=== PATIENT | male | born 1940 | race Caucasian/White ===

== ENCOUNTER 2018-08-22 14:19 | Inpatient (IN) | payer OTHER ==
--- NOTE | 2018-08-22 14:32 | EDPHY ---
H & P Stated Complaint: Abd Pain Time Seen by Provider: 08/22/18 14:30 - Personal History Current Tetanus Diphtheria and Acellular Pertussis (TDAP): Yes - Medical/Surgical History Hx Asthma: Yes Hx Chronic Respiratory Disease: No Hx Diabetes: No Hx Cardiac Disease: No Hx Renal Disease: No Hx Cirrhosis: No Hx Alcoholism: No Hx HIV/AIDS: No Hx Splenectomy or Spleen Trauma: No Other PMH: [place], Kidney Stone - Social History Smoking Status: Never smoked Constitutional: Initial Vital Signs Temperature (C) 36.5 C 08/22/18 14:23 Heart Rate 92 08/22/18 14:23 Respiratory Rate 16 08/22/18 14:23 Blood Pressure 123/98 H 08/22/18 14:23 O2 Sat (%) 106 H 08/22/18 14:23 O2 Delivery Mode Nasal Cannula O2 (L/minute) 1.5 Allergies/Adverse Reactions: ampicillin Allergy (Verified 08/22/18 14:22) cefaclor [From Ceclor] Allergy (Verified 08/22/18 14:22) Home Medications: Medication Instructions Recorded Clau Allergy 08/22/18 Atorvastatin Calcium 08/22/18 buPROPion 08/22/18 Medical Decision Making - Diagnostics Imaging Results: Imaging Impressions Abdomen CT 08/22/18 14:35 Impression: 1. Proximal small bowel obstruction, with an abrupt transition point in the left abdomen, with decompressed small bowel and colon distally. 2. Small volume of ascites. 3. Trace pleural effusions. 4. Additional findings, as above. Findings discussed with Kiko Blankenship M.D., on August 22, 2018 at 1633. Imaging: Discussed imaging studies w/ senior product development manager Radiologist, I viewed and interpreted images myself ED Course/Re-evaluation: CHIEF COMPLAINT: Abdominal pain, nausea vomiting HISTORY OF PRESENT ILLNESS: 78-year-old gentleman who states that he has very few medical problems. He takes a cholesterol pill and something for allergies. He states that about 3 days ago he began getting more more bloated. Additionally he started vomiting uncontrollably especially today. He denies having a bowel movement or passing any gas in the last 2-3 days. He is usually very regular. He denies any prior abdominal surgeries. He has never had any symptoms like this before. He denies fevers or chills. He is significantly anorexic over the last 3 days. REVIEW OF SYSTEMS: A comprehensive 10 system review of systems is otherwise negative aside from elements mentioned in the history of present illness and medical decision making. PHYSICAL EXAM: HR, BP, O2 Sat, RR. Temp noted General Appearance: Alert, well hydrated, appropriate, and non-toxic appearing. Head: Atraumatic without scalp tenderness or obvious injury Eyes: Pupils equal, round, reactive to light and accommodation, EOMI, no trauma , no injection. Ears: Clear bilaterally, no perforation, normal landmarks Nose: Atraumatic, no rhinorrhea, clear. Throat: There is no erythema or exudates, no lesions, normal tonsils, mucus membranes moist. Neck: Supple, 2+ carotid upstroke, nontender, no lymphadenopathy. Respiratory: No retractions, no distress, no wheezes, and no accessory muscle use. Lungs are clear to auscultation bilaterally. Cardiovascular: Regular rate and rhythm, no murmurs, rubs, or gallops. Bilateral carotid, radial, dorsalis pedis, and posterior tibial pulses intact. Good capillary refill all extremities. Gastrointestinal: Significant abdominal distention with tympanitic bowel sounds. Diffusely tender. Peritoneal signs positive. Musculoskeletal: Normal active ROM of all extremities, atraumatic. Neurological: Alert, appropriate, and interactive. The patient has normal DTRs and non-focal cranial nerves, motor, sensory, and cerebellar exam. Skin: No rashes, good turgor, no nodules on palpation. Past medical history: Hypercholesterolemia, seasonal allergies Past surgical history: None Family history: Noncontributory Social history: , in the room, denies tobacco drugs or alcohol use , retired DIAGNOSTICS/PROCEDURES/CRITICAL CARE TIME: Study: CT of the abdomen and pelvis with IV contrast Indication: Bloating, nausea vomiting when abdominal pain, no flatus or bowel movement Results: CT scan of the abdomen and pelvis was obtained. The results of the study are small bowel obstruction. The study was read by the radiologist, Dr. Romo. I viewed the images myself on the PACS system. DIFFERENTIAL DIAGNOSIS: The differential diagnosis for the patient's abdominal pain included but was not limited to appendicitis, cholecystitis, hernias, testicular torsion, gastritis, and urinary tract infection. MEDICAL DECISION MAKING: This patient clinically speaking has a fairly obvious bowel obstruction. He certainly could have a perforation or an infectious process also. CT scan laboratory studies are pending. IV fluids have been given, as the patient looks slightly dehydrated. 16:[address] Romo, radiologist. We have reviewed the patinet's CT scan and concur that this shows evidence of acute small bowel obstruction. Plan to consult with general surgery. 16:[address] Marin, general surgeon. He will evaluate the patient here in the emergency department. 16:45 Dr. Marin at bedside. He has also reviewed the patient's CT scan. 17:[address] Marin. He accepts admission for perioperative management of small bowel obstruction. - Data Points Laboratory Results: Laboratory Results 08/22/18 14:46 08/22/18 14:46 08/22/18 08/22/18 08/22/18 14:55 14:46 14:46 WBC RBC Hgb POC Hgb 18.0 gm/dL H gm/dL (13.7-17.5) Hct POC Hct 53 % H % (40-51) MCV MCH MCHC RDW Plt Count MPV Neut % (Auto) Lymph % (Auto) Carter % (Auto) Eos % (Auto) Baso % (Auto) Nucleat RBC Rel Count Absolute Neuts (auto) Absolute Lymphs (auto) Absolute Monos (auto) Absolute Eos (auto) Absolute Basos (auto) Absolute Nucleated RBC Immature Gran % Immature Gran # PT 13.9 SEC SEC (12.0-15.0) INR 1.05 (0.83-1.16) APTT 28.8 SEC SEC (23.0-38.0) POC Sodium 138 mEq/L mEq/L (135-145) Sodium 134 mEq/L L mEq/L (135-145) POC Potassium 4.3 mEq/L mEq/L (3.3-5.0) Potassium 4.7 mEq/L mEq/L (3.5-5.2) POC Chloride 100 mEq/L mEq/L (97-110) Chloride 99 mEq/L mEq/L (97-110) Carbon Dioxide 23 mEq/l mEq/l (22-31) Anion Gap 12 mEq/L mEq/L (6-14) POC BUN 24 mg/dL H mg/dL (7-23) BUN 24 mg/dL H mg/dL (7-23) Creatinine 1.0 mg/dL mg/dL (0.7-1.3) POC Creatinine 1.1 mg/dL mg/dL (0.7-1.3) Estimated GFR > 60 Glucose 150 mg/dL H mg/dL (70-100) POC Glucose 151 mg/dL H mg/dL (70-100) Calcium 9.6 mg/dL mg/dL (8.5-10.4) Total Bilirubin 0.7 mg/dL mg/dL (0.1-1.4) Conjugated Bilirubin 0.4 mg/dL mg/dL (0.0-0.5) Unconjugated Bilirubin 0.3 mg/dL mg/dL (0.0-1.1) AST 53 IU/L IU/L (17-59) ALT 38 IU/L IU/L (21-72) Alkaline Phosphatase 100 IU/L IU/L (38-126) Total Protein 7.1 g/dL g/dL (6.3-8.2) Albumin 4.3 g/dL g/dL (3.5-5.0) Lipase 84 IU/L IU/L (23-300) 08/22/18 14:46 WBC 9.20 10^3/uL 10^3/uL (3.80-9.50) RBC 5.90 10^6/uL 10^6/uL (4.40-6.38) Hgb 18.0 g/dL H g/dL (13.7-17.5) POC Hgb Hct 51.9 % H % (40.0-51.0) POC Hct MCV 88.0 fL fL (81.5-99.8) MCH 30.5 pg pg (27.9-34.1) MCHC 34.7 g/dL g/dL (32.4-36.7) RDW 12.6 % % (11.5-15.2) Plt Count 203 10^3/uL 10^3/uL (150-400) MPV 10.3 fL fL (8.7-11.7) Neut % (Auto) 79.7 % H % (39.3-74.2) Lymph % (Auto) 7.4 % L % (15.0-45.0) Carter % (Auto) 12.5 % % (4.5-13.0) Eos % (Auto) 0.0 % L % (0.6-7.6) Baso % (Auto) 0.2 % L % (0.3-1.7) Nucleat RBC Rel Count 0.0 % % (0.0-0.2) Absolute Neuts (auto) 7.33 10^3/uL H 10^3/uL (1.70-6.50) Absolute Lymphs (auto) 0.68 10^3/uL L 10^3/uL (1.00-3.00) Absolute Monos (auto) 1.15 10^3/uL H 10^3/uL (0.30-0.80) Absolute Eos (auto) 0.00 10^3/uL L 10^3/uL (0.03-0.40) Absolute Basos (auto) 0.02 10^3/uL 10^3/uL (0.02-0.10) Absolute Nucleated RBC 0.00 10^3/uL 10^3/uL (0-0.01) Immature Gran % 0.2 % % (0.0-1.1) Immature Gran # 0.02 10^3/uL 10^3/uL (0.00-0.10) PT INR APTT POC Sodium Sodium POC Potassium Potassium POC Chloride Chloride Carbon Dioxide Anion Gap POC BUN BUN Creatinine POC Creatinine Estimated GFR Glucose POC Glucose Calcium Total Bilirubin Conjugated Bilirubin Unconjugated Bilirubin AST ALT Alkaline Phosphatase Total Protein Albumin Lipase Medications Given: Discontinued Medications Hydromorphone HCl (Dilaudid) 1 mg IVP EDNOW ONE Stop: 08/22/18 15:19 Last Admin: 08/22/18 15:22 Dose: 1 mg Sodium Chloride (Ns) 1,000 mls @ 0 mls/hr IV EDNOW ONE; Wide Open PRN Reason: Protocol Stop: 08/22/18 14:36 Last Admin: 08/22/18 15:00 Dose: 1,000 mls Sodium Chloride (Ns) 1,000 mls @ 0 mls/hr IV EDNOW ONE; Wide Open PRN Reason: Protocol Stop: 08/22/18 16:40 Last Admin: 08/22/18 16:41 Dose: 1,000 mls Ondansetron HCl (Zofran) 4 mg IVP EDNOW ONE Stop: 08/22/18 15:19 Last Admin: 08/22/18 15:22 Dose: 4 mg Point of Care Test Results: Chemistry 08/22/18 14:55 POC Sodium 138 mEq/L mEq/L (135-145) POC Potassium 4.3 mEq/L mEq/L (3.3-5.0) POC Chloride 100 mEq/L mEq/L (97-110) POC BUN 24 mg/dL H mg/dL (7-23) POC Creatinine 1.1 mg/dL mg/dL (0.7-1.3) POC Glucose 151 mg/dL H mg/dL (70-100) ISTAT H&H 08/22/18 14:55 POC Hgb 18.0 gm/dL H gm/dL (13.7-17.5) POC Hct 53 % H % (40-51) Departure - Departure Disposition: [facility] Inpatient Acute Clinical Impression: Small bowel obstruction Condition: Fair Referrals: Cuate Pickett DO [Primary Care Provider] - As per Instructions
[2018-08-22] MEDS ORDERED: NS 1,000 ML IV ONE ×2 (14:35→16:39)
[2018-08-22 15:01] LABS: PLATELET COUNT 203 10^3/uL (150-400)
[2018-08-22 15:06] LABS: INR 1.05 (0.83-1.16); PROTIME(PATIENT) 13.9 SEC (12.0-15.0)
[2018-08-22] MEDS ORDERED: IOPAMIDOL (ISOVUE 370) 100 ML BTL IV ONE (15:12)
[2018-08-22] MEDS ORDERED: HYDROmorphONE/DILAUDID 2 MG/ML INJ IVP ONE (15:18)
[2018-08-22] MEDS ORDERED: ONDANSETRON 4 MG/2 ML VIAL IVP ONE (15:18)
[2018-08-22] MEDS ORDERED: HYDROmorphONE/DILAUDID 1 MG/ML INJ ONE (15:19)
[2018-08-22] MEDS ORDERED: ONDANSETRON 4 MG/2 ML VIAL ONE (15:19)
[2018-08-22] MEDS ORDERED: BENZOCAINE UNIT DOSE SPRAY HURRICAINE MM ONE (17:40)
[2018-08-22] MEDS ORDERED: ONDANSETRON 4 MG/2 ML VIAL IVP PRN (17:41)
[2018-08-22] MEDS ORDERED: CEPACOL LOZENGE PO PRN (17:45)
[2018-08-22] MEDS: LR 1,000 ML IV SCH (18:27)
[2018-08-22] MEDS: KETOROLAC 15 MG/1 ML SDV IVP SCH ×2 (18:30→23:42)
--- NOTE | 2018-08-22 18:36 | GHP ---
DATE OF ADMISSION: 08/22/2018 ADMITTING DIAGNOSIS: Bowel obstruction, presumed secondary to adhesions due to prior episodes of diverticulitis. HISTORY: The patient is a 78-year-old male. He had 4 prior episodes of diverticulitis. He was in his usual state of good health until Monday morning when he started complaining colicky abdominal pain. He has had several episodes of vomiting on Monday, Monday and Monday, prompting his visit to the emergency department today. There is no history of inflammatory bowel disease. There is no history of diarrhea. There is no history of antibiotic use or travel in the last 6 months. There is no history of prior similar symptoms. He did have an upper respiratory tract infection in the last 2 weeks. HABITS: He does not smoke. He does not drink. ALLERGIES: Both Ceclor and amoxicillin are thought to give him hives. MEDICATIONS: He does take an 81 mg aspirin on a daily basis. He takes atorvastatin 20 mg daily. Uses bupropion 100 mg twice a day for depression. He does use Clau and fluticasone. He also takes magnesium. There is no history of rheumatic fever, tuberculosis, hepatitis, or transfusions. The only procedure he has had has been a transurethral lithotripsy. PAST MEDICAL HISTORY: He had a colonoscopy last year. He does frequently have polyps. He wears hearing aids. His left ear is the better of the 2 ears. As mentioned, he has had kidney stones once. He had a concussion as young man. He wears lenses for visual correction. He has chronic sinusitis. He has dental crowns and implants. He has prostatism as manifested by nocturia x3. He has difficulty starting his stream and terminal dribbling. There are no limits on his activities and no history of steroid use aside from fluticasone nasal spray. PHYSICAL EXAMINATION: VITAL SIGNS: Show blood pressure of 155/100. His heart rate is 96. He is feeling dramatically better than when he arrived. He has had 1 dose of Dilaudid. His saturations are 98% on 2 L nasal cannula. His temperature is 37.2. GENERAL: He is engaging, awake, polite, and alert. NEUROLOGICAL: There are no focal lateralizing neurologic findings. He is oriented to person, place, and time. GCS is 15. HEENT: His skull is normocephalic and atraumatic. He has normal dental occlusion. NECK: Nontender. Thyroid is unremarkable. There are no carotid bruits. LYMPHATICS: There is no cervical, supraclavicular, axillary, or inguinal lymphadenopathy. BACK: Unremarkable. CHEST: Clear to auscultation. CARDIAC: Shows S1, S2 to be normal. Normal split of S2 without murmurs, rubs, or gallops. ABDOMEN: Distended, tympanitic with normoactive bowel sounds and nontender. Hernias are not identified. LOWER EXTREMITIES: Unremarkable. UPPER EXTREMITIES: Unremarkable. LABORATORIES: Show white count of 9200 with 8% neutrophils, hematocrit of 52, platelet count is 203. INR is 1.05. Sodium is 134, potassium is 4.7, BUN is 24 , creatinine is 1.0, glucose is 150. His lipase is 84. X-ray shows dilated proximal small bowel with transition point in the left lower quadrant consistent with a supposition. This is due to adhesions secondary to prior diverticulitis. Note is made that I do not detect any hernias nor do I see them on CAT scan. PLAN: Plan is to admit to the hospital and place a nasogastric suction. He will be provided with IV fluids. Toradol will be given for pain control. Certainly if he has any increasing pain, he will be reassessed. Followup x- rays to be obtained in the morning as well as laboratories. Hopefully this will resolve without surgical intervention and a small bowel follow-through could be used for followup. Certainly if his pain increases or his abdominal findings change, or his x-rays does not improve, or laboratories begin to do degrade, consideration will be given to surgical intervention. /[id number]/MODL MTDD
[2018-08-23] MEDS: KETOROLAC 15 MG/1 ML SDV IVP SCH ×4 (05:10→23:54)
[2018-08-23] MEDS: LR 1,000 ML IV SCH ×3 (05:10→23:54)
[2018-08-23 05:25] LABS: PLATELET COUNT 173 10^3/uL (150-400)
--- NOTE | 2018-08-23 09:30 | SOAPPROG ---
SOAP Progress Note Assessment/Plan: 08/23/18 09:26 PAD#1 Assessment: Good initial decompression when tube placed. No flatus, still distended, no acute abdomen, obstructive pattern on X-Ray but there is some gas in descending colon. Plan: NG position readjusted Follow exam, Repeat labs and XRay in AM Subjective: No flatus yet, I still feel distended. Objective: Vital Signs Temp Pulse Resp BP Pulse Ox 36.4 C 87 16 145/99 H 93 08/23/18 08:00 08/23/18 08:00 08/23/18 08:00 08/23/18 08:00 08/23/18 08:00 Laboratory Results 08/23/18 05:05 08/23/18 05:05 08/22/18 08/23/18 08/24/18 05:59 05:59 05:59 Intake Total 2020 Output Total 100 Balance 1920 PT 13.9 SEC (12.0-15.0) 08/22/18 14:46 INR 1.05 (0.83-1.16) 08/22/18 14:46 - Time Spent With Patient Time Spent With Patient: 25 Physical Exam - Physical Exam General Appearance: WD/WN, alert, mild distress Neck: full range of motion, supple Respiratory: chest non-tender, lungs clear, normal breath sounds Cardiac/Chest: regular rate, rhythm Abdomen: non-tender, soft, distended, other (high pitched BS) Male Genitalia: deferred Rectal: deferred Back: Normal inspection Skin: normal color, warm/dry Extremities: normal range of motion, non-tender Neuro/Psych: no motor/sensory deficits, alert, normal mood/affect, oriented x 3 ICD10 Worksheet Patient Problems: Problems Problem Status Onset Small bowel obstruction Acute
[2018-08-23] MEDS ORDERED: HYDROmorphONE/DILAUDID 1 MG/ML INJ IVP ONE (10:45)
--- NOTE | 2018-08-23 11:58 | ASMTCMCOM ---
CM Note CM Note Notes: Spoke w/RN, pt admitted with sbo. He has an NG tube, uncertain if he will need surgery, CM w/f. He is otherwise independent at baseline and lives at home with his . DC Plan: Independent Date Signed: 08/23/2018 11:57 AM Electronically Signed By:Ibeth Fernandez RN
[2018-08-23] MEDS: FLUTICASONE NASAL 120 SPRAYS/16 GM MDI EACHNARE PRN (13:06)
--- NOTE | 2018-08-23 15:46 | PDMN ---
Medical Necessity Medical necessity: Pt meets inpt criteria per MD order and MCG M-210, Intestinal Obstruction, 2 days. 78 y/o presenting w/abd pain and vomiting, admitted w/sm bowel obstruction, confirmed on CT. NGT, IVF, IV Toradol for pain. Est LOS>2MN for eval/management of above.
[2018-08-24] MEDS: KETOROLAC 15 MG/1 ML SDV IVP SCH ×4 (05:41→23:24)
[2018-08-24 06:14] LABS: PLATELET COUNT 142 10^3/uL (150-400)
--- NOTE | 2018-08-24 08:52 | SOAPPROG ---
SOGIA Progress Note Assessment/Plan: Assessment/Plan: 78-year-old gentleman partial small-bowel obstruction admitted on 08/22/2018. Nasogastric tube decompression since admission. Electrolytes and white blood cell count normal. Patient began passing flatus last night but is still mildly distended. Abdominal x-rays are pending for today. Will likely need additional decompression over the next 24 hr prior to recent option of diet. Hard of hearing Regular rate and rhythm Clear to auscultation Abdomen soft distended nontender to palpation. Extremities without edema Impression/plan: This is a 78-year-old gentleman with adhesive obstruction will likely do well with non operative treatment. Continue nasogastric tube decompression. Weight abdominal x-rays from today. Encourage ambulation. 08/24/18 08:50 Objective: Vital Signs Temp Pulse Resp BP Pulse Ox 36.8 C 75 12 123/82 H 91 L 08/24/18 07:29 08/24/18 07:29 08/24/18 07:29 08/24/18 07:29 08/24/18 07:29 Laboratory Results 08/24/18 05:13 08/24/18 05:13 08/23/18 08/24/18 08/25/18 05:59 05:59 05:59 Intake Total 2020 1200 Output Total 100 500 Balance 1920 700 PT 13.9 SEC (12.0-15.0) 08/22/18 14:46 INR 1.05 (0.83-1.16) 08/22/18 14:46 ICD10 Worksheet Patient Problems: Problems Problem Status Onset Small bowel obstruction Acute
[2018-08-24] MEDS: FLUTICASONE NASAL 120 SPRAYS/16 GM MDI EACHNARE PRN (10:31)
[2018-08-24] MEDS ORDERED: LORazepam 2 MG/ML INJ IVP ONE (17:17)
[2018-08-24] MEDS: LR 1,000 ML IV SCH (17:54)
[2018-08-25] MEDS: KETOROLAC 15 MG/1 ML SDV IVP SCH ×4 (05:35→23:22)
[2018-08-25] MEDS: LR 1,000 ML IV SCH ×2 (05:36→16:13)
--- NOTE | 2018-08-25 07:40 | SOAPPROG ---
SOAP Progress Note Assessment/Plan: 08/23/18 09:26 PAD#1 Assessment: Good initial decompression when tube placed. No flatus, still distended, no acute abdomen, obstructive pattern on X-Ray but there is some gas in descending colon. Plan: NG position readjusted Follow exam, Repeat labs and XRay in AM 08/25/18 07:37 PAD#3 Assessment: NG not working at one point. Adjusted. then good output. Ng inadvertently out this AM. None the less he has had 6 stools overnight. Although he is still distended and bowel sounds hypoactive will leave NG out and encourage ambulation. SBO appears to be resolving. Plan: Continue NPO, Re-assess need for NG later today. 08/25/18 07:42 Subjective: My hearing aid batteries are . ( difficult to communicate, not in distress) Objective: Vital Signs Temp Pulse Resp BP Pulse Ox 36.6 C 84 16 131/89 H 93 08/25/18 07:17 08/25/18 07:17 08/25/18 07:17 08/25/18 07:17 08/25/18 07:17 Laboratory Results 08/24/18 05:13 08/24/18 05:13 08/24/18 08/25/18 08/26/18 05:59 05:59 05:59 Intake Total 1200 Output Total 500 450 Balance 700 -450 PT 13.9 SEC (12.0-15.0) 08/22/18 14:46 INR 1.05 (0.83-1.16) 08/22/18 14:46 - Time Spent With Patient Time Spent With Patient: 25 Physical Exam - Physical Exam General Appearance: WD/WN, alert, no apparent distress Respiratory: chest non-tender, lungs clear, normal breath sounds Cardiac/Chest: regular rate, rhythm Abdomen: non-tender, soft, distended, other (Hypoactive bowel sounds) Male Genitalia: deferred Rectal: deferred Back: Normal inspection Skin: normal color, warm/dry Neuro/Psych: no motor/sensory deficits, alert, normal mood/affect, oriented x 3 ICD10 Worksheet Patient Problems: Problems Problem Status Onset Small bowel obstruction Acute
[2018-08-25] MEDS ORDERED: LIDOCAINE 2% JELLY 20 ML (UROJECT) UR ONE (20:41)
[2018-08-26] MEDS: LR 1,000 ML IV SCH (00:29)
[2018-08-26] MEDS ORDERED: LORazepam 2 MG/ML INJ IVP ONE (00:30)
[2018-08-26 05:47] LABS: PLATELET COUNT 129 10^3/uL (150-400)
[2018-08-26] MEDS: KETOROLAC 15 MG/1 ML SDV IVP SCH ×3 (05:51→18:23)
[2018-08-26] MEDS ORDERED: D5W 1/2 NS W/ 20 KCl/L 1,000 ML IV SCH (08:00)
--- NOTE | 2018-08-26 08:31 | SOAPPROG ---
SOAP Progress Note Assessment/Plan: 08/23/18 09:26 PAD#1 Assessment: Good initial decompression when tube placed. No flatus, still distended, no acute abdomen, obstructive pattern on X-Ray but there is some gas in descending colon. Plan: NG position readjusted Follow exam, Repeat labs and XRay in AM 08/25/18 07:37 PAD#3 Assessment: NG not working at one point. Adjusted. then good output. Ng inadvertently out this AM. None the less he has had 6 stools overnight. Although he is still distended and bowel sounds hypoactive will leave NG out and encourage ambulation. SBO appears to be resolving. Plan: Continue NPO, Re-assess need for NG later today. 08/26/18 08:25 Assessment: Required replacement of NG tube last PM due to increased distention. 500 cc out NG. Now passing some gas but no stool. wbc low. VSS I feel that he as at best a moderate grade partial SBO that is not resolving. Plan: Speak with family about exploration today for definitive care. Given age and probable cause of scaring from diverticulitis, I feel that an open approach will be more advantageous/expeditious for him. Subjective: I feel better, I've had a few small "farts" Objective: Vital Signs Temp Pulse Resp BP Pulse Ox 36.9 C 73 18 142/88 H 92 08/26/18 03:11 08/26/18 03:11 08/26/18 03:11 08/26/18 03:11 08/26/18 03:11 Laboratory Results 08/26/18 05:15 08/26/18 05:15 08/25/18 08/26/18 08/27/18 05:59 05:59 05:59 Output Total 450 1302 Balance -450 -1302 PT 13.9 SEC (12.0-15.0) 08/22/18 14:46 INR 1.05 (0.83-1.16) 08/22/18 14:46 - Time Spent With Patient Time Spent With Patient: 25 - Pending Discharge Pending Discharge Within 24 Hours: No Pending Discharge Within 48 Hours: No Physical Exam - Physical Exam General Appearance: WD/WN, alert, no apparent distress Respiratory: lungs clear, normal breath sounds Cardiac/Chest: regular rate, rhythm Abdomen: non-tender, soft, distended, other (hypoactive and some high pitched bowel sounds) Male Genitalia: deferred Rectal: deferred Skin: normal color Extremities: normal range of motion, non-tender, normal inspection Neuro/Psych: no motor/sensory deficits, alert, normal mood/affect, oriented x 3 ICD10 Worksheet Patient Problems: Problems Problem Status Onset Small bowel obstruction Acute
[2018-08-26] MEDS ORDERED: CIPROFLOXACIN 400 MG/DEXTROSE 200 ML IV SCH (12:15)
[2018-08-26] MEDS ORDERED: fentaNYL 250 MCG/5 ML INJ ONE (12:52)
[2018-08-26] MEDS ORDERED: PROPOFOL 200 MG/20 ML VIAL ONE (12:53)
[2018-08-26] MEDS ORDERED: LIDOCAINE 2% 5 ML SDV ONE (12:55)
--- NOTE | 2018-08-26 13:00 | PDANEPAE ---
ANE History of Present Illness ex lap for SBO ANE Past Medical History - Cardiovascular History Hx Hypertension: No Hx Arrhythmias: No Hx Chest Pain: No Hx Coronary Artery / Peripheral Vascular Disease: No Hx CHF / Valvular Disease: No Hx Palpitations: No - Pulmonary History Hx COPD: No Hx Asthma/Reactive Airway Disease: No Hx Recent Upper Respiratory Infection: No Hx Oxygen in Use at Home: No Hx Sleep Apnea: No Sleep Apnea Screening Result - Last Documented: Negative - Endocrine History Hx Diabetes: No Hypothyroid: No Hyperthyroid: No Obesity: no - Chronic Pain History Chronic Pain: No ANE Review of Systems Review of systems is: negative Review of Systems: - Exercise capacity Exercise capacity: >=4 METS ANE Patient History - Allergies Allergies/Adverse Reactions: ampicillin Allergy (Verified 08/22/18 14:22) cefaclor [From Ceclor] Allergy (Verified 08/22/18 14:22) - Home Medications Home medications: home medication list seen and reviewed Home Medications: Atorvastatin Calcium [Lipitor 20 mg (*)] 20 mg PO DAILY 08/22/18 [Last Taken 01/30] Fexofenadine HCl [Clau Allergy] 180 mg PO DAILY PRN 08/22/18 [Last Taken 01/30] Fluticasone Propionate [Flonase Allergy Relief] 1 spray EACHNARE DAILY PRN 08/22 [Last Taken 08/19/18] Ibuprofen [Motrin (*)] 200 - 400 mg PO Q6H PRN 08/22/18 [Last Taken Unknown] Magnesium Oxide [Magnesium Oxide 400 mg (*)] 400 mg PO HS 08/22/18 [Last Taken 08/21/18] buPROPion SR [Wellbutrin 100mg SR (*)] 100 mg PO BID 08/22/18 [Last Taken ] - NPO status NPO Since - Liquids (Date): 08/24/18 NPO Since - Solids (Date): 08/22/18 - Anes Hx Anes Hx: no prior problems - Smoking Hx Smoking Status: Never smoked ANE Labs/Vital Signs - Labs Result Diagrams: 08/26/18 05:15 08/26/18 05:15 - Vital Signs Blood Pressure: 149/90 Heart Rate: 87 Respiratory Rate: 16 O2 Sat (%): 96 Height: 175.26 cm Weight: 83.461 kg ANE Physical Exam - Airway Neck exam: FROM Mallampati Score: Class 2 Mouth exam: normal dental/mouth exam - Pulmonary Pulmonary: no respiratory distress - Cardiovascular Cardiovascular: regular rate and rhythym - ASA Status ASA Status: II, E ANE Anesthesia Plan Anesthesia Plan: general endotracheal anesthesia
[2018-08-26] MEDS ORDERED: SUCCINYLCHOLINE CHLORIDE 200 MG/10 ML SYR IVP ONE (13:10)
[2018-08-26] MEDS ORDERED: ONDANSETRON 4 MG/2 ML VIAL ONE (13:10)
[2018-08-26] MEDS ORDERED: DEXAMETHASONE 4 MG/ML VIAL ONE (13:10)
[2018-08-26] MEDS ORDERED: SUGAMMADEX SODIUM 200 MG/2 ML VIAL IVP ONE (13:10)
[2018-08-26] MEDS ORDERED: LIDOCAINE 2% JELLY 20 ML (UROJECT) ONE (13:27)
[2018-08-26] MEDS ORDERED: ROCURONIUM 100 MG/10 ML VIAL ONE (13:28)
[2018-08-26] MEDS ORDERED: HYDROmorphONE/DILAUDID 2 MG/ML INJ ONE (13:45)
[2018-08-26] MEDS ORDERED: ALBUTEROL 3 ML DEYVIAL IH PRN (13:53)
[2018-08-26] MEDS ORDERED: oxyCODONE IR 5 MG TAB PO PRN (13:53)
[2018-08-26] MEDS ORDERED: LR 500 ML IV PRN (13:53)
[2018-08-26] MEDS ORDERED: HYDROCODONE/APAP 5/325 TAB PO PRN (13:53)
[2018-08-26] MEDS ORDERED: ONDANSETRON 4 MG/2 ML VIAL IVP PRN (13:53)
[2018-08-26] MEDS ORDERED: HYDROmorphONE/DILAUDID 2 MG/ML INJ IVP PRN (13:53)
[2018-08-26] MEDS ORDERED: fentaNYL 100 MCG/2 ML INJ IVP PRN (13:53)
[2018-08-26] MEDS ORDERED: METOCLOPRAMIDE 10 MG/2 ML VIAL IVP PRN (13:53)
[2018-08-26] MEDS ORDERED: PROMETHAZINE HCL 25 MG/ML INJ IVP PRN (13:53)
[2018-08-26] MEDS ORDERED: NALOXONE HCL 0.4 MG/ML INJ IVP PRN (13:53)
[2018-08-26] MEDS ORDERED: ACETAMINOPHEN 500 MG TAB PO PRN (13:53)
--- NOTE | 2018-08-26 13:53 | POSTANESTH ---
Post Anesthetic Evaluation Cardiovascular Status: Normal, Stable Respiratory Status: Normal, Stable Level of Consciousness/Mental Status: Can Participate in Eval, Alert and Oriented Pain Control: Adequate, Prn Tx Ordered Nausea/Vomiting Control: Adequate, Prn Tx Ordered Complications Possibly Related to Anesthesia: None Noted
[2018-08-26] MEDS ORDERED: PHENYLEPHRINE HCL 100 MCG/ML SYR ONE (13:58)
[2018-08-26] MEDS ORDERED: KETOROLAC 30 MG/1 ML SDV ONE (13:59)
[2018-08-26] MEDS ORDERED: CLINDAMYCIN 900 MG/DEXTROSE 50 ML IV SCH (14:00)
[2018-08-26] MEDS ORDERED: ROPIVACAINE HCL 150 MG/30 ML INJ ONE (14:02)
--- NOTE | 2018-08-26 14:58 | POSTOPPROG ---
Post Op Note Date of Operation: 08/26/18 Surgeon: Josue Marin Anesthesia: GET(General Endotracheal) Pre-op Diagnosis: Moderate grade partial SBO Post-op Diagnosis: Moderate grade partial SBO due to adhesive band Indication: Moderate grade partial SBO Procedure: Exploratory laparotomy with lysis of adhesions Findings: Moderate grade partial SBO due to adhesive band Inf/Abcess present in the surg proc area at time of surgery?: No EBL: Minimal Total fluids administered: 600 Complications: none Specimen(s): none
[2018-08-26] MEDS: NS W/ 20 KCl/L 1,000 ML IV SCH ×2 (15:31→21:55)
[2018-08-26] MEDS: ACETAMINOPHEN 500 MG TAB PO SCH ×2 (16:42→21:55)
--- NOTE | 2018-08-26 17:30 | ASMTCMCOM ---
CM Note CM Note Notes: Case Management Chart Review for Discharge Support: Patient underwent exploratory laparotomy with lysis of adhesions, findings moderate grade partial small bowl obstruction due to adhesive band. CM talked with JHOANA Dale, patient will likely discharge in a few days independent. CM to follow. D/C Plan: Independent Date Signed: 08/26/2018 05:29 PM Electronically Signed By:Shanita Urena
[2018-08-26] MEDS: buPROPion SR 100 MG TAB PO SCH (21:55)
--- NOTE | 2018-08-27 03:33 | GOP ---
DATE OF OPERATION: 08/26/2018 SURGEON: Josue Marin MD PREOPERATIVE DIAGNOSIS: Moderate grade partial small bowel obstruction that has not resolved with nonoperative therapy. POSTOPERATIVE DIAGNOSIS: 1. Moderate grade partial small bowel obstruction due to adhesive bands x2. 2. Small bowel duplication cysts. PROCEDURE PERFORMED: Exploratory laparotomy with enterolysis. The second partial bowel obstruction was located at the terminal ileum. Lysis of that adhesion I felt was important as well. FINDINGS: SBO due to adhesions INDICATIONS: Moderate grade partial small bowel obstruction that has not resolved with nonoperative therapy. DESCRIPTION OF PROCEDURE: The patient was placed on the OR [facility]. A surgical time out was performed and agreed to by all members of [facility] operative team. He was placed under general endotracheal anesthesia, clipped, prepped and draped. The abdomen was entered to the right of the umbilicus and the incision was extended into both the hypogastrium and epigastrium. The peritoneum was entered and clear peritoneal fluid was evacuated. The small bowel was quite distended proximally. The adhesive band was quickly located and divided. The small bowel was run and a second adhesion was found at the terminal ileum. It was also divided. There has been no bowel injury. The fascia was closed with a running suture of #0 PDS. The subcutaneous tissue was irrigated. The skin was closed with betty. A sterile dressing was applied. The patient tolerated the procedure well and was transferred to recovery in stable and satisfactory condition. There was 600 cc of fluid used during the course of the procedure and a TAP block was placed at the end of the procedure. /[id number]/MODL MTDD
[2018-08-27] MEDS: KETOROLAC 15 MG/1 ML SDV IVP SCH ×3 (05:29→13:25)
[2018-08-27] MEDS: ACETAMINOPHEN 500 MG TAB PO SCH ×3 (05:29→21:35)
[2018-08-27 05:59] LABS: PLATELET COUNT 134 10^3/uL (150-400)
[2018-08-27] MEDS ORDERED: HYDROCODONE/APAP 5/325 TAB PO PRN (07:51)
[2018-08-27] MEDS: ATORVASTATIN CALCIUM 20 MG TAB PO SCH (07:59)
[2018-08-27] MEDS: buPROPion SR 100 MG TAB PO SCH ×2 (07:59→21:35)
--- NOTE | 2018-08-27 08:19 | SOAPPROG ---
SOAP Progress Note Assessment/Plan: Assessment/Plan: 78 Y M hx diverticulitis s/p lysis of adhesions for SBO, POD# 1. Seen and examined with Dr. Ybarra. Ileus. Continue NPO, IVF. OOB, ambulate. D/c good catheter. VTE ppx tomorrow. Continue routine post op care. S: no gas. no nausea. pain controlled. eager to get good out. O: alert, nad ncat chest clear rare BS, +soft distention, wounds intact 08/27/18 08:18 Objective: Vital Signs Temp Pulse Resp BP Pulse Ox 36.8 C 74 18 172/102 H 96 08/27/18 07:41 08/27/18 07:41 08/27/18 07:41 08/27/18 07:41 08/27/18 07:41 Laboratory Results 08/27/18 05:44 08/27/18 05:44 08/26/18 08/27/18 08/28/18 05:59 05:59 05:59 Intake Total 2100 Output Total 1302 1200 Balance -1302 900 PT 13.9 SEC (12.0-15.0) 08/22/18 14:46 INR 1.05 (0.83-1.16) 08/22/18 14:46 ICD10 Worksheet Patient Problems: Problems Problem Status Onset Small bowel obstruction Acute
[2018-08-27] MEDS ORDERED: CETIRIZINE 10 MG TAB PO PRN (09:00)
[2018-08-27] MEDS: NS W/ 20 KCl/L 1,000 ML IV SCH (11:12)
[2018-08-27] MEDS: MAGNESIUM OXIDE 400 MG TAB PO SCH (16:21)
[2018-08-28] MEDS: ACETAMINOPHEN 500 MG TAB PO SCH ×3 (05:33→21:28)
[2018-08-28] MEDS: NS W/ 20 KCl/L 1,000 ML IV SCH (05:33)
[2018-08-28] MEDS: ENOXAPARIN 40 MG/0.4 ML SYR SC SCH (08:52)
[2018-08-28] MEDS: MAGNESIUM OXIDE 400 MG TAB PO SCH (08:53)
[2018-08-28] MEDS: ATORVASTATIN CALCIUM 20 MG TAB PO SCH (08:53)
[2018-08-28] MEDS: buPROPion SR 100 MG TAB PO SCH ×2 (08:53→21:28)
[2018-08-28] MEDS ORDERED: MAGNESIUM CITRATE 300 ML BOTTLE PO ONE (15:24)
--- NOTE | 2018-08-28 17:30 | SOAPPROG ---
SOAP Progress Note Assessment/Plan: 08/23/18 09:26 PAD#1 Assessment: Good initial decompression when tube placed. No flatus, still distended, no acute abdomen, obstructive pattern on X-Ray but there is some gas in descending colon. Plan: NG position readjusted Follow exam, Repeat labs and XRay in AM 08/25/18 07:37 PAD#3 Assessment: NG not working at one point. Adjusted. then good output. Ng inadvertently out this AM. None the less he has had 6 stools overnight. Although he is still distended and bowel sounds hypoactive will leave NG out and encourage ambulation. SBO appears to be resolving. Plan: Continue NPO, Re-assess need for NG later today. 08/26/18 08:25 Assessment: Required replacement of NG tube last PM due to increased distention. 500 cc out NG. Now passing some gas but no stool. wbc low. VSS I feel that he as at best a moderate grade partial SBO that is not resolving. Plan: Speak with family about exploration today for definitive care. Given age and probable cause of scaring from diverticulitis, I feel that an open approach will be more advantageous/expeditious for him. 08/28/18 17:26 POD#2 Assessment: Ileus and aerophagia, eructation, VSS, X-ray shows proximal bowel distention. Abdomen distended but not tender, hypoactive bowel sounds, TSH normal No response to mag citrate Plan: Consider bowel rest with NG F/u labs and Xray in AM Subjective: "i'm burping and passing a small amount of flatus Objective: Vital Signs Temp Pulse Resp BP Pulse Ox 36.9 C 94 16 139/98 H 96 08/28/18 16:00 08/28/18 16:00 08/28/18 16:00 08/28/18 16:00 08/28/18 16:00 Laboratory Results 08/27/18 05:44 08/27/18 05:44 08/27/18 08/28/18 08/29/18 05:59 05:59 05:59 Intake Total 2100 1150 Output Total 1200 1275 150 Balance 900 -125 -150 PT 13.9 SEC (12.0-15.0) 08/22/18 14:46 INR 1.05 (0.83-1.16) 08/22/18 14:46 - Time Spent With Patient Time Spent With Patient: 25 - Pending Discharge Pending Discharge Within 24 Hours: No Pending Discharge Within 48 Hours: No Physical Exam - Physical Exam General Appearance: WD/WN, alert, no apparent distress Neck: full range of motion, supple Respiratory: chest non-tender, lungs clear, normal breath sounds Cardiac/Chest: regular rate, rhythm Abdomen: non-tender, soft, distended, other (hypoactive bowel sounds) Male Genitalia: deferred Rectal: deferred Back: Normal inspection Skin: normal color, warm/dry Extremities: normal range of motion, non-tender, normal inspection Neuro/Psych: no motor/sensory deficits, alert, normal mood/affect, oriented x 3 , other (walking novoa) ICD10 Worksheet Patient Problems: Problems Problem Status Onset Small bowel obstruction Acute
[2018-08-28] MEDS: BACITRACIN OINTMENT 1 PACKET TP SCH (23:51)
[2018-08-29 05:44] LABS: PLATELET COUNT 186 10^3/uL (150-400)
[2018-08-29] MEDS: ACETAMINOPHEN 500 MG TAB PO SCH ×3 (05:58→21:06)
[2018-08-29] MEDS: BACITRACIN OINTMENT 1 PACKET TP SCH ×3 (05:59→21:07)
[2018-08-29] MEDS: ENOXAPARIN 40 MG/0.4 ML SYR SC SCH (09:15)
[2018-08-29] MEDS: ATORVASTATIN CALCIUM 20 MG TAB PO SCH (09:15)
[2018-08-29] MEDS: buPROPion SR 100 MG TAB PO SCH ×2 (09:15→21:06)
[2018-08-29] MEDS: MAGNESIUM OXIDE 400 MG TAB PO SCH (09:15)
[2018-08-29] MEDS ORDERED: MAGNESIUM CITRATE 300 ML BOTTLE PO ONE (10:49)
--- NOTE | 2018-08-29 15:15 | SOAPPROG ---
SOAP Progress Note Assessment/Plan: 08/23/18 09:26 PAD#1 Assessment: Good initial decompression when tube placed. No flatus, still distended, no acute abdomen, obstructive pattern on X-Ray but there is some gas in descending colon. Plan: NG position readjusted Follow exam, Repeat labs and XRay in AM 08/25/18 07:37 PAD#3 Assessment: NG not working at one point. Adjusted. then good output. Ng inadvertently out this AM. None the less he has had 6 stools overnight. Although he is still distended and bowel sounds hypoactive will leave NG out and encourage ambulation. SBO appears to be resolving. Plan: Continue NPO, Re-assess need for NG later today. 08/26/18 08:25 Assessment: Required replacement of NG tube last PM due to increased distention. 500 cc out NG. Now passing some gas but no stool. wbc low. VSS I feel that he as at best a moderate grade partial SBO that is not resolving. Plan: Speak with family about exploration today for definitive care. Given age and probable cause of scaring from diverticulitis, I feel that an open approach will be more advantageous/expeditious for him. 08/28/18 17:26 POD#2 Assessment: Ileus and aerophagia, eructation, VSS, X-ray shows proximal bowel distention. Abdomen distended but not tender, hypoactive bowel sounds, TSH normal No response to mag citrate Plan: Consider bowel rest with NG F/u labs and Xray in AM 08/29/18 15:11 POD#3 Assessment: Passing gas and stool, abdominal X-ray shows dilated bowel but also gas in descending colon. No pain. Impression: resolving ileus with aerophagia TSH normal Plan: Re-dose with mag citrate and fleets continue ambulation Subjective: I'm passing gas and stool Objective: Vital Signs Temp Pulse Resp BP Pulse Ox 36.7 C 85 14 133/87 H 94 08/29/18 08:00 08/29/18 08:00 08/29/18 08:00 08/29/18 08:00 08/29/18 08:00 Laboratory Results 08/29/18 05:24 08/29/18 05:24 08/28/18 08/29/18 08/30/18 05:59 05:59 05:59 Intake Total 1150 0 Output Total 1275 725 175 Balance -125 -725 -175 PT 13.9 SEC (12.0-15.0) 08/22/18 14:46 INR 1.05 (0.83-1.16) 08/22/18 14:46 - Time Spent With Patient Time Spent With Patient: 15 minutes - Pending Discharge Pending Discharge Within 24 Hours: No Physical Exam - Physical Exam General Appearance: WD/WN, alert, no apparent distress Respiratory: lungs clear, normal breath sounds Cardiac/Chest: regular rate, rhythm Abdomen: normal bowel sounds, non-tender, soft Male Genitalia: deferred Rectal: deferred Back: Normal inspection Skin: normal color, warm/dry Neuro/Psych: no motor/sensory deficits, alert, normal mood/affect, oriented x 3 ICD10 Worksheet Patient Problems: Problems Problem Status Onset Small bowel obstruction Acute
--- NOTE | 2018-08-29 16:55 | ASMTCMCOM ---
CM Note CM Note Notes: Pt admitted for small bowel obstruction, no therapies ordered. Anticipate he will dc home w/support of when medically stable. CM available for any changes. DC Plan: Independent Date Signed: 08/29/2018 04:54 PM Electronically Signed By:Ibeth Fernandez RN
[2018-08-29] MEDS: MULTIVITAMINS W-MINERALS 1 EACH TAB PO SCH (17:48)
[2018-08-29] MEDS: HYDROmorphONE/DILAUDID 1 MG/ML INJ IVP PRN ×2 (22:30→22:55)
[2018-08-30] MEDS: HYDROmorphONE/DILAUDID 2 MG TAB PO PRN ×3 (01:03→13:37)
[2018-08-30] MEDS: ONDANSETRON 4 MG/2 ML VIAL IVP PRN (02:43)
[2018-08-30] MEDS: HYDROmorphONE/DILAUDID 1 MG/ML INJ IVP PRN (04:45)
[2018-08-30 06:22] LABS: PLATELET COUNT 216 10^3/uL (150-400)
[2018-08-30] MEDS: BACITRACIN OINTMENT 1 PACKET TP SCH ×3 (08:42→21:28)
--- NOTE | 2018-08-30 08:49 | SOAPPROG ---
SOAP Progress Note Assessment/Plan: Assessment: 78yo M s/p ex-lap, NIKOLAY for SBO - VSS, HDS - pain was well controlled, had an acute episode last night which is beter this AM. Likely 2/2 distention and swelling - abdomen is distended, soft. He is pasing flatus - plan will be to slow back to clears. - he is hesitant to go home, will check in later today to see how he is doing. Poss home later today but more than likely tomorrow. Plan: 08/30/18 08:47 Subjective: Had a lot of pain last night, better this AM Objective: Vital Signs Temp Pulse Resp BP Pulse Ox 36.6 C 95 16 143/96 H 90 L 08/30/18 04:00 08/30/18 04:00 08/30/18 04:00 08/30/18 04:00 08/30/18 04:00 Laboratory Results 08/30/18 05:35 08/30/18 05:35 08/29/18 08/30/18 08/31/18 05:59 05:59 05:59 Intake Total 0 700 Output Total 725 175 Balance -725 525 PT 13.9 SEC (12.0-15.0) 08/22/18 14:46 INR 1.05 (0.83-1.16) 08/22/18 14:46 ICD10 Worksheet Patient Problems: Problems Problem Status Onset Small bowel obstruction Acute
[2018-08-30] MEDS: MAGNESIUM OXIDE 400 MG TAB PO SCH (08:52)
[2018-08-30] MEDS: buPROPion SR 100 MG TAB PO SCH ×2 (08:52→21:26)
[2018-08-30] MEDS: ATORVASTATIN CALCIUM 20 MG TAB PO SCH (08:52)
[2018-08-30] MEDS: MULTIVITAMINS W-MINERALS 1 EACH TAB PO SCH (08:52)
[2018-08-30] MEDS: ACETAMINOPHEN 500 MG TAB PO SCH ×3 (08:54→21:26)
[2018-08-30] MEDS: ENOXAPARIN 40 MG/0.4 ML SYR SC SCH (09:30)
[2018-08-30] MEDS: hydrALAZINE 10 MG TAB PO SCH ×3 (14:37→21:26)
[2018-08-30] MEDS: NS W/ 20 KCl/L 1,000 ML IV SCH (14:58)
[2018-08-30] MEDS: amLODIPine BESYLATE 5 MG TAB PO SCH (20:19)
--- NOTE | 2018-08-30 20:39 | PDCONSULT ---
Pack Changer Note: Noah Frost is a very pleasant 78-year-old male with past medical history of hyperlipidemia seasonal allergies and bilateral hearing loss who was admitted for a small-bowel obstruction. He was initially managed medically but ultimately required an ex lap with lysis of adhesions. He seems to be recovering well. Medicine has been consulted for persistently elevated blood pressures. The patient states that he has no history of hypertension but that his current blood pressures are typically where he runs. He denies any current pain, and appears comfortable. Past medical history Hyperlipidemia Multiple episodes of diverticulitis Bilateral hearing loss Seasonal allergies Past surgical history Noncontributory Social history No alcohol tobacco or illicit drugs Family history No known family history of hypertension or cardiovascular disease Allergies include ampicillin and cefaclor Current medications Baby aspirin, Lipitor, Wellbutrin, Clau, Flonase Objective Vital signs; blood pressure 168/105 mean arterial pressure of 126 heart rate is 93 respirations 18, oxygen saturation of 92% on room air Examination Gen elderly gentleman in no acute distress HEENT- poor dentition, head is atraumatic normocephalic, mucous membranes are moist pink and acyanotic pupils are equal round reactive to light and accommodation lungs- clear to auscultation bilaterally Abdomen-abdomen was distended, nontender to palpation, bowel sounds were present , no organomegaly, no guarding or rebound Extremities- no clubbing cyanosis edema or calf pain Neuro- cranial nerves 2-12 grossly intact no focal neurological deficits Skin- no rashes or ecchymosis Psych- mood appropriate, Assessment and plan 78-year-old male admitted for small-bowel obstruction now status post ex lap for lysis of adhesions. SBO- management per surgery, patient tolerating liquids tonight. Abdomen distended but soft. Hypertension- he was given some small pushes of IV hydralazine with minimal effect. Appears to have fairly persistent stage I hypertension. -add Norvasc 5 mg -assess response and if needed increased dose Hypokalemia- likely secondary to poor oral intake. Would give 40 of K-Dur and recheck in a.m. PPX- Lovenox Thank you for allowing us to participate in the care of this patient.
[2018-08-31] MEDS: NS W/ 20 KCl/L 1,000 ML IV SCH (02:31)
[2018-08-31] MEDS: ACETAMINOPHEN 500 MG TAB PO SCH ×3 (05:18→21:50)
[2018-08-31] MEDS: ONDANSETRON 4 MG/2 ML VIAL IVP PRN (06:42)
[2018-08-31] MEDS: hydrALAZINE 10 MG TAB PO SCH ×3 (07:56→21:50)
[2018-08-31] MEDS: MAGNESIUM OXIDE 400 MG TAB PO SCH (07:57)
[2018-08-31] MEDS: buPROPion SR 100 MG TAB PO SCH ×2 (07:57→21:50)
[2018-08-31] MEDS: BACITRACIN OINTMENT 1 PACKET TP SCH ×3 (07:57→21:51)
[2018-08-31] MEDS: amLODIPine BESYLATE 5 MG TAB PO SCH (07:57)
[2018-08-31] MEDS: ATORVASTATIN CALCIUM 20 MG TAB PO SCH (07:57)
[2018-08-31] MEDS: ENOXAPARIN 40 MG/0.4 ML SYR SC SCH (07:58)
--- NOTE | 2018-08-31 09:49 | SOAPPROG ---
SOAP Progress Note Assessment/Plan: Assessment: 78yo M s/p ex-lap, NIKOLAY for SBO - still hypertensive, hospitalist assisting. Started Norvasc, appreciate their assistance - abdomen still distended, hypoactive bowel sounds. KUB from yesterday confirms ileus. Back down to sips and chips - ambulate. Time. Plan: 08/30/18 08:47 08/31/18 09:48 Subjective: vomited this AM Objective: Vital Signs Temp Pulse Resp BP Pulse Ox 36.8 C 92 18 159/108 H 90 L 08/31/18 07:12 08/31/18 07:12 08/31/18 07:12 08/31/18 07:57 08/31/18 07:12 Laboratory Results 08/30/18 05:35 08/30/18 05:35 08/30/18 08/31/18 09/01/18 05:59 05:59 05:59 Intake Total 700 1300 Output Total 175 900 550 Balance 525 400 -550 PT 13.9 SEC (12.0-15.0) 08/22/18 14:46 INR 1.05 (0.83-1.16) 08/22/18 14:46 ICD10 Worksheet Patient Problems: Problems Problem Status Onset Small bowel obstruction Acute
--- NOTE | 2018-08-31 10:06 | ASMTCMCOM ---
CM Note CM Note Notes: Spoke w/RN, pt vomited this am, still has ileus. Otherwise independent, will dc home w/support of when medically stable. CM available for any changes. DC Plan: Independent Date Signed: 08/31/2018 10:05 AM Electronically Signed By:Ibeth Fernandez RN
[2018-08-31] MEDS: MULTIVITAMINS W-MINERALS 1 EACH TAB PO SCH (10:13)
--- NOTE | 2018-08-31 11:01 | HOSPPROG ---
Hospitalist Progress Note Assessment/Plan: 78M with SBO s/p NIKOLAY. Persistent ileus. HM consulted for treatment of hypertension 1. htn - cont norvasc 5mg - since he received hydralazine IV, will add lisinopril 10mg Subjective: no BM today; ongoing abd pain; episode of emesis today Objective: Vital Signs Temp Pulse Resp BP Pulse Ox 36.8 C 92 18 159/108 H 90 L 08/31/18 07:12 08/31/18 07:12 08/31/18 07:12 08/31/18 07:57 08/31/18 07:12 Laboratory Results 08/30/18 05:35 08/30/18 05:35 08/30/18 08/31/18 09/01/18 05:59 05:59 05:59 Intake Total 700 1300 Output Total 175 900 550 Balance 525 400 -550 PT 13.9 SEC (12.0-15.0) 08/22/18 14:46 INR 1.05 (0.83-1.16) 08/22/18 14:[address] abd reviewed AXR personally reviewed - Physical Exam Constitutional: uncomfortable Cardiovascular: regular rate and rhythym, no murmur, rub, or gallop Respiratory: no respiratory distress, no rales or rhonchi, clear to auscultation Gastrointestinal: distension, other (infrequent BS), No lai's sign, No guarding, No rebound ICD10 Worksheet Patient Problems: Problems Problem Status Onset Small bowel obstruction Acute
[2018-08-31] MEDS: LISINOPRIL 10 MG TAB PO SCH (11:53)
[2018-08-31] MEDS: MELATONIN 3 MG TAB PO PRN (21:50)
[2018-09-01] MEDS: ACETAMINOPHEN 500 MG TAB PO SCH ×3 (05:57→21:09)
[2018-09-01] MEDS: NS W/ 20 KCl/L 1,000 ML IV SCH (05:57)
[2018-09-01] MEDS: D5W 1/2 NS W/ 20 KCl/L 1,000 ML IV SCH ×2 (09:02→21:10)
[2018-09-01] MEDS: buPROPion SR 100 MG TAB PO SCH (09:05)
[2018-09-01] MEDS: amLODIPine BESYLATE 5 MG TAB PO SCH (09:05)
[2018-09-01] MEDS: hydrALAZINE 10 MG TAB PO SCH ×3 (09:06→21:09)
[2018-09-01] MEDS: ENOXAPARIN 40 MG/0.4 ML SYR SC SCH (09:06)
[2018-09-01] MEDS: BACITRACIN OINTMENT 1 PACKET TP SCH ×3 (09:06→21:09)
[2018-09-01] MEDS: ATORVASTATIN CALCIUM 20 MG TAB PO SCH (09:06)
[2018-09-01] MEDS: MAGNESIUM OXIDE 400 MG TAB PO SCH (09:06)
[2018-09-01] MEDS: LISINOPRIL 10 MG TAB PO SCH (09:06)
[2018-09-01] MEDS: MULTIVITAMINS W-MINERALS 1 EACH TAB PO SCH (09:06)
--- NOTE | 2018-09-01 09:35 | SOAPPROG ---
SOAP Progress Note Assessment/Plan: Assessment: 78 year old male with SBO s/p lysis of adhesions. Persistent ileus. Plan: Abdominal pain improving. Continue NPO, will advance diet once having BMs. Continue home medications 09/01/18 09:35 Subjective: improved abdominal pain. no emesis today but frequent belching. No BMs yet today, passing flatus. Objective: General: comfortable, no acute distress, sitting in bed HENT: Normocephalic, no gross hearing deficits, mucous membranes moist, pupils equal and round Lungs: Clear to auscultation bilaterally, No increased work of breathing Cardiac: Regular rate, no peripheral edema Abdomen: Bowel sounds present, abdomen still very distended. Nontender to palpation. Skin: Warm and dry. Incisions clean, dry and intact without evidence of infection Psych: Mood and affect normal Neuro: Grossly intact 09/01/18 09:46 09/01/18 09:49 09/01/18 10:46 09/01/18 10:48 Objective: Vital Signs Temp Pulse Resp BP Pulse Ox 36.6 C 90 14 161/100 H 94 09/01/18 08:00 09/01/18 08:00 09/01/18 08:00 09/01/18 09:06 09/01/18 08:00 Laboratory Results 08/30/18 05:35 09/01/18 05:39 08/31/18 09/01/18 09/02/18 05:59 05:59 05:59 Intake Total 1300 Output Total 900 1350 550 Balance 400 -1350 -550 PT 13.9 SEC (12.0-15.0) 08/22/18 14:46 INR 1.05 (0.83-1.16) 08/22/18 14:46 ICD10 Worksheet Patient Problems: Problems Problem Status Onset Small bowel obstruction Acute
--- NOTE | 2018-09-01 11:41 | HOSPPROG ---
Hospitalist Progress Note Assessment/Plan: 78M with SBO s/p NIKOLAY. Persistent ileus. HM consulted for treatment of hypertension 1. htn - incr norvasc 5mg -> 10mg today - cont lisinopril 10mg - cont hydral prn 2. depr - stop welbutrin as it can cause htn - start paxil Subjective: long discussion with , dtr and patient regarding ileus, depression Objective: Vital Signs Temp Pulse Resp BP Pulse Ox 36.6 C 90 14 161/100 H 94 09/01/18 08:00 09/01/18 08:00 09/01/18 08:00 09/01/18 09:06 09/01/18 08:00 Laboratory Results 08/30/18 05:35 09/01/18 05:39 08/31/18 09/01/18 09/02/18 05:59 05:59 05:59 Intake Total 1300 Output Total 900 1350 550 Balance 400 -1350 -550 PT 13.9 SEC (12.0-15.0) 08/22/18 14:46 INR 1.05 (0.83-1.16) 08/22/18 14:46 - Time Spent With Patient Time Spent with Patient: greater than 35 minutes Time Spent with Patient: Greater than 35 minutes spent on this patients care, greater than 50% of time spent counseling, educating, and coordinating care regarding the above mentioned plan. - Physical Exam Constitutional: no apparent distress Gastrointestinal: distension, No guarding, No rebound ICD10 Worksheet Patient Problems: Problems Problem Status Onset Small bowel obstruction Acute
[2018-09-01] MEDS ORDERED: amLODIPine BESYLATE 5 MG TAB PO ONE (11:45)
[2018-09-01] MEDS: PARoxetine HCL 10 MG TAB PO SCH (12:31)
[2018-09-01] MEDS: CEPACOL LOZENGE PO PRN (15:21)
[2018-09-02] MEDS: D5W 1/2 NS W/ 20 KCl/L 1,000 ML IV SCH (05:18)
[2018-09-02] MEDS: ACETAMINOPHEN 500 MG TAB PO SCH ×3 (05:18→21:50)
[2018-09-02 05:37] LABS: PLATELET COUNT 268 10^3/uL (150-400)
[2018-09-02] MEDS: LISINOPRIL 10 MG TAB PO SCH (08:08)
[2018-09-02] MEDS: POTASSIUM Cl (KCl) 100 ML IV SCH ×2 (08:08→10:14)
[2018-09-02] MEDS: ATORVASTATIN CALCIUM 20 MG TAB PO SCH (08:09)
[2018-09-02] MEDS: MULTIVITAMINS W-MINERALS 1 EACH TAB PO SCH (08:09)
[2018-09-02] MEDS: PARoxetine HCL 10 MG TAB PO SCH (08:09)
[2018-09-02] MEDS: MAGNESIUM OXIDE 400 MG TAB PO SCH (08:09)
[2018-09-02] MEDS: ENOXAPARIN 40 MG/0.4 ML SYR SC SCH (08:10)
[2018-09-02] MEDS: BACITRACIN OINTMENT 1 PACKET TP SCH ×3 (08:10→21:50)
[2018-09-02] MEDS: CEPACOL LOZENGE PO PRN (08:18)
[2018-09-02] MEDS: FLUTICASONE NASAL 120 SPRAYS/16 GM MDI EACHNARE PRN (09:02)
[2018-09-02] MEDS: hydrALAZINE 10 MG TAB PO SCH (10:20)
--- NOTE | 2018-09-02 10:22 | HOSPPROG ---
Hospitalist Progress Note Assessment/Plan: 78M with SBO s/p NIKOLAY. Persistent ileus. HM consulted for treatment of hypertension. Elevated WBC noted. 1. 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 neck pain - suspect muscle spasm; no neuro sx - trial of robaxin 4. hypoK - repleting 5. dvt ppx - lovenox Subjective: cc ileus - no BM but significant gas; mild abd pain, ongoing distension; also c/o neck pain which started last night, occurs every year or so, not associated with any peripheral neurologic sx Objective: Vital Signs Temp Pulse Resp BP Pulse Ox 36.6 C 92 16 150/97 H 96 09/02/18 07:59 09/02/18 07:59 09/02/18 07:59 09/02/18 08:09 09/02/18 07:59 Laboratory Results 09/02/18 04:57 09/02/18 04:57 09/01/18 09/02/18 09/03/18 05:59 05:59 05:59 Intake Total 900 Output Total 1350 1650 Balance -1350 -750 PT 13.9 SEC (12.0-15.0) 08/22/18 14:46 INR 1.05 (0.83-1.16) 08/22/18 14:[address] Wiggins - Physical Exam Constitutional: no apparent distress, appears nourished Cardiovascular: regular rate and rhythym, no murmur, rub, or gallop Respiratory: no respiratory distress, no rales or rhonchi, clear to auscultation Gastrointestinal: distension, other (soft, some normal and some high pitched bowel sounds), No guarding, No rebound ICD10 Worksheet Patient Problems: Problems Problem Status Onset Small bowel obstruction Acute
[2018-09-02] MEDS: METHOCARBAMOL 750 MG TAB PO PRN (10:50)
--- NOTE | 2018-09-02 11:04 | SOAPPROG ---
SOAP Progress Note Assessment/Plan: Assessment: 78 year old male with SBO s/p lysis of adhesions. Persistent ileus. Plan: Continue NPO, will advance diet once having BMs. Increase bowel protocol to stimulate BM Elevated WBC today, will continue to monitor. If persistently elevated tomorrow or still no BM, will consider abdominal CT Medication for neck pain Continue home medications Incision can be left open to air 09/01/18 09:35 Subjective: No complaints of abdominal pain but is complaining of neck pain. Patient reports having similar pain before, usually resolves within 1-2 days. No BM yet but passing flatus and belching. Objective: General: pleasant and comfortable, no acute distress, out of bed sitting in chair HENT: Normocephalic, no gross hearing deficits, mucous membranes moist, pupils equal and round Neck: Spinous processes nontender to palpation. FROM bilaterally. Lungs: Clear to auscultation bilaterally, No increased work of breathing Cardiac: Regular rate, no peripheral edema Abdomen: Bowel sounds present, abdomen still distended, but improved from yesterday. Nontender to palpation. Skin: Warm and dry. Incisions clean, dry and intact without evidence of infection. Psych: Mood and affect normal Neuro: Grossly intact 09/01/18 09:46 09/01/18 09:49 09/01/18 10:46 09/01/18 10:48 09/02/18 10:57 Objective: Vital Signs Temp Pulse Resp BP Pulse Ox 36.6 C 92 16 150/97 H 96 09/02/18 07:59 09/02/18 07:59 09/02/18 07:59 09/02/18 08:09 09/02/18 07:59 Laboratory Results 09/02/18 04:57 09/02/18 04:57 09/01/18 09/02/18 09/03/18 05:59 05:59 05:59 Intake Total 900 Output Total 1350 1650 Balance -1350 -750 PT 13.9 SEC (12.0-15.0) 08/22/18 14:46 INR 1.05 (0.83-1.16) 08/22/18 14:46 ICD10 Worksheet Patient Problems: Problems Problem Status Onset Small bowel obstruction Acute
[2018-09-02] MEDS ORDERED: MAGNESIUM HYDROXIDE 30 ML UDCUP PO PRN (12:38)
[2018-09-02] MEDS ORDERED: POLYETHYLENE GLYCOL 3350 17 GM PKT PO PRN (12:38)
[2018-09-02] MEDS ORDERED: LACTULOSE 20 GM/30 ML UDCUP PO PRN (12:38)
[2018-09-02] MEDS ORDERED: BISACODYL 10 MG SUPP PR PRN (12:38)
[2018-09-02] MEDS ORDERED: POLYETHYLENE GLYCOL 3350 17 GM PKT PO ONE (14:45)
[2018-09-02] MEDS: SENNOSIDES/DOCUSATE SODIUM TAB PO SCH (21:50)
[2018-09-03] MEDS: ACETAMINOPHEN 500 MG TAB PO SCH ×3 (05:29→21:43)
[2018-09-03] MEDS: D5W 1/2 NS W/ 20 KCl/L 1,000 ML IV SCH ×2 (05:30→22:56)
[2018-09-03 05:44] LABS: PLATELET COUNT 273 10^3/uL (150-400)
[2018-09-03] MEDS ORDERED: ALTEPLASE 2 MG VIAL IVP PRN (08:15)
[2018-09-03] MEDS ORDERED: D10W 1,000 ML IV PRN (08:16)
--- NOTE | 2018-09-03 08:33 | SOAPPROG ---
SOAP Progress Note Assessment/Plan: Assessment: 78yo M s/p ex-lap, NIKOLAY for SBO - BP is better - WBC down today. Unclear source. - abdominal distention is better, still no real bowel function - PICC, starting TPN today Plan: 08/30/18 08:47 08/31/18 09:48 09/03/18 08:33 09/03/18 08:33 Subjective: passing flatus, still no BM Objective: Vital Signs Temp Pulse Resp BP Pulse Ox 36.7 C 96 16 139/87 H 93 09/03/18 07:24 09/03/18 07:24 09/03/18 07:24 09/03/18 07:24 09/03/18 07:24 Laboratory Results 09/03/18 05:08 09/03/18 05:08 09/02/18 09/03/18 09/04/18 05:59 05:59 05:59 Intake Total 900 Output Total 1650 950 Balance -750 -950 PT 13.9 SEC (12.0-15.0) 08/22/18 14:46 INR 1.05 (0.83-1.16) 08/22/18 14:46 ICD10 Worksheet Patient Problems: Problems Problem Status Onset Small bowel obstruction Acute
--- NOTE | 2018-09-03 08:59 | HOSPPROG ---
Hospitalist Progress Note Assessment/Plan: 78M with SBO s/p NIKOLAY. Persistent ileus. HM consulted for treatment of hypertension. First encounter, chart reviewed. 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 Objective: Vital Signs Temp Pulse Resp BP Pulse Ox 36.7 C 96 16 139/87 H 93 09/03/18 07:24 09/03/18 07:24 09/03/18 07:24 09/03/18 07:24 09/03/18 07:24 Laboratory Results 09/03/18 05:08 09/03/18 05:08 09/02/18 09/03/18 09/04/18 05:59 05:59 05:59 Intake Total 900 Output Total 1650 950 Balance -750 -950 PT 13.9 SEC (12.0-15.0) 08/22/18 14:46 INR 1.05 (0.83-1.16) 08/22/18 14:46 - Physical Exam Constitutional: uncomfortable Eyes: PERRL Ears, Nose, Mouth, Throat: hearing normal Cardiovascular: regular rate and rhythym Respiratory: no respiratory distress Gastrointestinal: distension, No normoactive bowel sounds (no bowel sounds) Skin: warm Musculoskeletal: generalized weakness Neurologic: AAOx3 Psychiatric: interacting appropriately, anxious ICD10 Worksheet Patient Problems: Problems Problem Status Onset Small bowel obstruction Acute
[2018-09-03 09:09] LABS: PLATELET COUNT 270 10^3/uL (150-400)
[2018-09-03 09:15] LABS: INR 1.1 (0.83-1.16); PROTIME(PATIENT) 14.4 SEC (12.0-15.0)
[2018-09-03] MEDS: BACITRACIN OINTMENT 1 PACKET TP SCH (09:34)
--- NOTE | 2018-09-03 09:38 | ASMTCMCOM ---
CM Note CM Note Notes: Pts case discussed w/ Lilo Correa NP and JHOANA Rojo. Pt is not medically stable to d/c at this time. Pt will have a picc line placed and start TPN. It is uncertain if pt will require TPN at time of d/c. CM to follow. Plan: TBD Date Signed: 09/03/2018 09:37 AM Electronically Signed By:HARDIK Tanner
[2018-09-03] MEDS: SENNOSIDES/DOCUSATE SODIUM TAB PO SCH ×2 (10:58→21:44)
[2018-09-03] MEDS: PARoxetine HCL 10 MG TAB PO SCH (10:58)
[2018-09-03] MEDS: MAGNESIUM OXIDE 400 MG TAB PO SCH (10:59)
[2018-09-03] MEDS: ATORVASTATIN CALCIUM 20 MG TAB PO SCH (10:59)
[2018-09-03] MEDS: MULTIVITAMINS W-MINERALS 1 EACH TAB PO SCH (10:59)
[2018-09-03] MEDS: LISINOPRIL 10 MG TAB PO SCH (10:59)
[2018-09-03] MEDS: FLUTICASONE NASAL 120 SPRAYS/16 GM MDI EACHNARE PRN (11:03)
[2018-09-03] MEDS: ENOXAPARIN 40 MG/0.4 ML SYR SC SCH (12:01)
[2018-09-03] MEDS ORDERED: POTASSIUM Cl (KCl) 50 ML IV ONE (12:45)
[2018-09-03] MEDS: HYDROmorphONE/DILAUDID 1 MG/ML INJ IVP PRN (15:12)
[2018-09-03] MEDS: TPN 1 EA BAG IV SCH (21:43)
[2018-09-03] MEDS: HYDROmorphONE/DILAUDID 2 MG TAB PO PRN (21:43)
[2018-09-04] MEDS: ACETAMINOPHEN 500 MG TAB PO SCH ×3 (05:16→21:28)
[2018-09-04 05:37] LABS: INR 1.08 (0.83-1.16); PROTIME(PATIENT) 14.2 SEC (12.0-15.0)
[2018-09-04 05:41] LABS: PLATELET COUNT 290 10^3/uL (150-400)
[2018-09-04] MEDS: MAGNESIUM OXIDE 400 MG TAB PO SCH (08:23)
[2018-09-04] MEDS: ATORVASTATIN CALCIUM 20 MG TAB PO SCH (08:23)
[2018-09-04] MEDS: LISINOPRIL 10 MG TAB PO SCH (08:23)
[2018-09-04] MEDS: MULTIVITAMINS W-MINERALS 1 EACH TAB PO SCH (08:23)
[2018-09-04] MEDS: ENOXAPARIN 40 MG/0.4 ML SYR SC SCH (08:23)
[2018-09-04] MEDS: PARoxetine HCL 10 MG TAB PO SCH (08:23)
[2018-09-04] MEDS: SENNOSIDES/DOCUSATE SODIUM TAB PO SCH ×2 (08:23→21:28)
--- NOTE | 2018-09-04 08:52 | HOSPPROG ---
Hospitalist Progress Note Assessment/Plan: 78M with SBO s/p NIKOLAY. Persistent ileus. HM consulted for treatment of hypertension. * htn -much iproved - Norvasc 10mg & lisinopril 10 mg - bp better today * SBO s/p NIKOLAY -he has some bowel sounds in the left lower quadrant, belching. -PICC line and TPN *leukocytosis -not clear of etiology -will follow *depression - per previous provider his is a psychologist and very concerned about his - stop Wellbutrin as it can cause htn - start Paxil * neck pain - suspect muscle spasm; no neuro sx - trial of Robaxin - no c/o of this today * hypoK - will be on TPN (this electrolyte will be addressed in this) * dvt ppx - lovenox *plan: spent time with the patient and the ; they are frustrated and concerned about the ileus. Told them we don't know when this will resolve, but he has some bowel sounds today. They are relieved he is on TPN and he is still weak but feeling a bit stronger. Subjective: Michael has no c/o pain except feeling bloated and concerned about his bowel function. Objective: Vital Signs Temp Pulse Resp BP Pulse Ox 36.9 C 94 16 134/93 H 93 09/04/18 08:13 09/04/18 08:13 09/04/18 08:13 09/04/18 08:13 09/04/18 08:13 Laboratory Results 09/04/18 05:15 09/04/18 05:15 09/03/18 09/04/18 09/05/18 05:59 05:59 05:59 Intake Total 600 Output Total 950 1250 Balance -950 -650 PT 14.2 SEC (12.0-15.0) 09/04/18 05:15 INR 1.08 (0.83-1.16) 09/04/18 05:15 - Physical Exam Constitutional: uncomfortable Eyes: PERRL Ears, Nose, Mouth, Throat: hearing normal Cardiovascular: regular rate and rhythym Respiratory: no respiratory distress Gastrointestinal: distension, No normoactive bowel sounds (hypoactive) Skin: warm Musculoskeletal: generalized weakness Neurologic: AAOx3 Psychiatric: interacting appropriately ICD10 Worksheet Patient Problems: Problems Problem Status Onset Small bowel obstruction Acute
--- NOTE | 2018-09-04 09:38 | SOAPPROG ---
NITA Progress Note Assessment/Plan: Assessment/Plan: 78yo M s/p ex-lap, NIKOLAY for SBO - BP is better - WBC up today. Unclear source. No fever. TPN? monitor. may need CT if worse. - ileus. abdominal distention is better, better bowel function--passing some gas , better bowel sounds - has PICC, TPN started - PT/OT. Seen with Dr. Veras. Consider advancing diet in next 1-2 days if ileus continues to improve. S: passing some gas, belching. no n/v. thinks he is getting better. feels like his mind is not as sharp as he'd like after starting tpn. feels weak--standing is a chore. is tearful and frustrated. O: alert, nad ctab anteriorly rrr abd +BS, softly distended, inc cdi 09/04/18 09:47 Objective: Vital Signs Temp Pulse Resp BP Pulse Ox 36.9 C 94 16 134/93 H 93 09/04/18 08:13 09/04/18 08:13 09/04/18 08:13 09/04/18 08:13 09/04/18 08:13 Laboratory Results 09/04/18 05:15 09/04/18 05:15 09/03/18 09/04/18 09/05/18 05:59 05:59 05:59 Intake Total 600 Output Total 950 1250 Balance -950 -650 PT 14.2 SEC (12.0-15.0) 09/04/18 05:15 INR 1.08 (0.83-1.16) 09/04/18 05:15 ICD10 Worksheet Patient Problems: Problems Problem Status Onset Small bowel obstruction Acute
[2018-09-04] MEDS: POTASSIUM Cl (KCl) 50 ML IV SCH ×4 (12:23→15:16)
[2018-09-04] MEDS: FLUTICASONE NASAL 120 SPRAYS/16 GM MDI EACHNARE PRN (14:09)
[2018-09-04] MEDS: D5W 1/2 NS W/ 20 KCl/L 1,000 ML IV SCH (14:13)
[2018-09-04] MEDS: TPN 1 EA BAG IV SCH (21:27)
[2018-09-05] MEDS: ACETAMINOPHEN 500 MG TAB PO SCH ×3 (05:25→21:38)
[2018-09-05 05:36] LABS: PLATELET COUNT 321 10^3/uL (150-400)
[2018-09-05 05:50] LABS: INR 1.07 (0.83-1.16); PROTIME(PATIENT) 14.1 SEC (12.0-15.0)
[2018-09-05] MEDS: MULTIVITAMINS W-MINERALS 1 EACH TAB PO SCH (07:37)
[2018-09-05] MEDS: ATORVASTATIN CALCIUM 20 MG TAB PO SCH (07:37)
[2018-09-05] MEDS: SENNOSIDES/DOCUSATE SODIUM TAB PO SCH ×2 (07:38→21:38)
[2018-09-05] MEDS: LISINOPRIL 10 MG TAB PO SCH (07:38)
[2018-09-05] MEDS: MAGNESIUM OXIDE 400 MG TAB PO SCH (07:38)
[2018-09-05] MEDS: PARoxetine HCL 10 MG TAB PO SCH (07:39)
[2018-09-05] MEDS: ENOXAPARIN 40 MG/0.4 ML SYR SC SCH (07:40)
[2018-09-05] MEDS: HYDROmorphONE/DILAUDID 1 MG/ML INJ IVP PRN ×2 (09:13→13:10)
--- NOTE | 2018-09-05 09:28 | SOAPPROG ---
SOAP Progress Note Assessment/Plan: Assessment/Plan: 78yo M s/p ex-lap, NIKOLAY for SBO [place]s [place] down today, [id number] to [id number]. Still has ileus. Continue TPN. PT/OT. S: passing some gas, belching. no n/v. thinks he is getting better. feels stronger after starting tpn. O: alert, nad ctab anteriorly rrr abd +hypoactive BS, softly distended, inc cdi 09/05/18 09:25 Objective: Vital Signs Temp Pulse Resp BP Pulse Ox 36.6 C 91 16 140/87 H 97 09/05/18 07:24 09/05/18 07:24 09/05/18 07:24 09/05/18 07:24 09/05/18 07:24 Laboratory Results 09/05/18 05:10 09/05/18 05:10 09/04/18 09/05/18 09/06/18 05:59 05:59 05:59 Intake Total 600 2354 Output Total 1250 1050 100 Balance -650 1304 -100 PT 14.1 SEC (12.0-15.0) 09/05/18 05:10 INR 1.07 (0.83-1.16) 09/05/18 05:10 ICD10 Worksheet Patient Problems: Problems Problem Status Onset Small bowel obstruction Acute
--- NOTE | 2018-09-05 14:31 | ASMTCMCOM ---
CM Note CM Note Notes: CM met w/ pt and family for dispo planning. PT is recommending HC. Pt and family are agreeable to HC services. Pt is currently on TPN. The hope is for pt to transition to food prior to being d/c'd. Pt and family agreeable to a referral made to [facility]. [facility] is able to accept. CM to follow. Plan: [facility], PT Date Signed: 09/05/2018 02:30 PM Electronically Signed By:HARDIK Tanner
--- NOTE | 2018-09-05 15:01 | HOSPPROG ---
Hospitalist Progress Note Assessment/Plan: 78M with SBO s/p NIKOLAY. Persistent ileus. HM consulted for treatment of hypertension. * htn -much improved - Norvasc 10mg & lisinopril 10 mg * SBO s/p NIKOLAY -he has some bowel sounds in the right lower quadrant, belching. -PICC line and TPN *ileus due to the above *leukocytosis -not clear of etiology -better today *moderate protein calorie malnutrition -7% weight loss in 2 weeks w associated muscle wasting and fat loss (per patient 14 pound weight loss) -TPN *depression - stop Wellbutrin as it can cause htn - start Paxil * neck pain - suspect muscle spasm; no neuro sx - trial of Robaxin - no c/o of this today * hypoK - will be on TPN (this electrolyte will be addressed in this) * dvt ppx - lovenox *plan: continue therapies w PT and OT (he was very happy about walking twice around the unit now), explained to Noah he needs time to get bowel function Subjective: Michael had some abdominal discomfort earlier. Objective: Vital Signs Temp Pulse Resp BP Pulse Ox 36.9 C 91 16 127/87 H 95 09/05/18 11:59 09/05/18 11:59 09/05/18 11:59 09/05/18 11:59 09/05/18 11:59 Laboratory Results 09/05/18 05:10 09/05/18 05:10 09/04/18 09/05/18 09/06/18 05:59 05:59 05:59 Intake Total 600 2354 Output Total 1250 1050 100 Balance -650 1304 -100 PT 14.1 SEC (12.0-15.0) 09/05/18 05:10 INR 1.07 (0.83-1.16) 09/05/18 05:10 - Physical Exam Constitutional: appears nourished, uncomfortable Eyes: PERRL Ears, Nose, Mouth, Throat: hearing normal Cardiovascular: regular rate and rhythym Respiratory: no respiratory distress Gastrointestinal: distension, No normoactive bowel sounds (high pitched bowel sounds in ruq and rlq, very quiet on the whole left side of the abdomen) Skin: warm Musculoskeletal: generalized weakness Neurologic: AAOx3 Psychiatric: interacting appropriately ICD10 Worksheet Patient Problems: Problems Problem Status Onset Small bowel obstruction Acute
[2018-09-05] MEDS: TPN 1 EA BAG IV SCH (21:38)
[2018-09-06] MEDS: ACETAMINOPHEN 500 MG TAB PO SCH ×3 (05:45→22:48)
[2018-09-06 06:12] LABS: PLATELET COUNT 290 10^3/uL (150-400)
[2018-09-06 06:21] LABS: INR 1.15 (0.83-1.16); PROTIME(PATIENT) 14.9 SEC (12.0-15.0)
[2018-09-06] MEDS: SENNOSIDES/DOCUSATE SODIUM TAB PO SCH ×2 (07:36→22:48)
[2018-09-06] MEDS: MAGNESIUM OXIDE 400 MG TAB PO SCH (07:37)
[2018-09-06] MEDS: ATORVASTATIN CALCIUM 20 MG TAB PO SCH (07:37)
[2018-09-06] MEDS: LISINOPRIL 10 MG TAB PO SCH (07:38)
[2018-09-06] MEDS: MULTIVITAMINS W-MINERALS 1 EACH TAB PO SCH (07:38)
[2018-09-06] MEDS: ENOXAPARIN 40 MG/0.4 ML SYR SC SCH (07:39)
[2018-09-06] MEDS: PARoxetine HCL 10 MG TAB PO SCH (07:39)
--- NOTE | 2018-09-06 12:46 | HOSPPROG ---
Hospitalist Progress Note Assessment/Plan: 78M with SBO s/p NIKOLAY. Persistent ileus. HM consulted for treatment of hypertension. WBC improving. # htn - much better controlled on cont norvasc 10mg, cont lisinopril 10mg # depr - wellbutrin was stopped as it can cause hypertension - start paxil # neck pain - suspect muscle spasm; no neuro sx - robaxin prn - overall better # moderate protein calorie malnutrition # hypoK - repleting # dvt ppx - lovenox Subjective: had a few small BMs alst night, and a large BM today; ambulating Objective: Vital Signs Temp Pulse Resp BP Pulse Ox 36.8 C 84 16 121/74 H 96 09/06/18 10:58 09/06/18 10:58 09/06/18 10:58 09/06/18 10:58 09/06/18 10:58 Laboratory Results 09/06/18 05:54 09/06/18 05:54 09/05/18 09/06/18 09/07/18 05:59 05:59 05:59 Intake Total 2354 Output Total 1050 400 350 Balance 1304 -400 -350 PT 14.9 SEC (12.0-15.0) 09/06/18 05:54 INR 1.15 (0.83-1.16) 09/06/18 05:54 - Physical Exam Constitutional: no apparent distress, appears nourished Cardiovascular: regular rate and rhythym, no murmur, rub, or gallop Respiratory: no respiratory distress, no rales or rhonchi, clear to auscultation Gastrointestinal: normoactive bowel sounds, soft, non-tender abdomen, distension ICD10 Worksheet Patient Problems: Problems Problem Status Onset Small bowel obstruction Acute
[2018-09-06] MEDS: HYDROmorphONE/DILAUDID 2 MG TAB PO PRN (14:38)
[2018-09-06] MEDS: D5W 1/2 NS W/ 20 KCl/L 1,000 ML IV SCH (20:46)
[2018-09-06] MEDS: TPN 1 EA BAG IV SCH (20:46)
[2018-09-07] MEDS: ACETAMINOPHEN 500 MG TAB PO SCH ×3 (05:51→21:00)
[2018-09-07] MEDS ORDERED: SIMETHICONE DROPS 30 ML BOTTLE PO PRN (08:30)
[2018-09-07] MEDS: ATORVASTATIN CALCIUM 20 MG TAB PO SCH (08:56)
[2018-09-07] MEDS: MULTIVITAMINS W-MINERALS 1 EACH TAB PO SCH (08:57)
[2018-09-07] MEDS: LISINOPRIL 10 MG TAB PO SCH (08:58)
[2018-09-07] MEDS: SENNOSIDES/DOCUSATE SODIUM TAB PO SCH ×2 (09:00→21:01)
[2018-09-07] MEDS: MAGNESIUM OXIDE 400 MG TAB PO SCH (09:00)
[2018-09-07] MEDS: ENOXAPARIN 40 MG/0.4 ML SYR SC SCH (09:02)
[2018-09-07] MEDS: PARoxetine HCL 10 MG TAB PO SCH (09:02)
--- NOTE | 2018-09-07 09:40 | SOAPPROG ---
SOAP Progress Note Assessment/Plan: Assessment: 78yo M s/p ex-lap, NIKOLAY for SBO - having some cramping with clears but overall tolerating. Still passing flatus , BMs - will advance diet, also adding simethicone - cont TPN - if he continues to progress even with some cramps plan for dc in next day or so Plan: 08/30/18 08:47 08/31/18 09:48 09/03/18 08:33 09/03/18 08:33 09/07/18 09:39 Subjective: some cramping Objective: Vital Signs Temp Pulse Resp BP Pulse Ox 36.9 C 83 16 124/79 H 95 09/07/18 08:00 09/07/18 08:00 09/07/18 08:00 09/07/18 08:00 09/07/18 08:00 Laboratory Results 09/06/18 05:54 09/07/18 06:05 09/06/18 09/07/18 09/08/18 05:59 05:59 05:59 Intake Total 3437 Output Total 400 1300 375 Balance -400 2137 -375 PT 14.9 SEC (12.0-15.0) 09/06/18 05:54 INR 1.15 (0.83-1.16) 09/06/18 05:54 ICD10 Worksheet Patient Problems: Problems Problem Status Onset Small bowel obstruction Acute
--- NOTE | 2018-09-07 12:54 | HOSPPROG ---
Hospitalist Progress Note Assessment/Plan: 78M with SBO s/p NIKOLAY. Persistent ileus. HM consulted for treatment of hypertension. WBC improving. First encounter, chart reviewed. D/W Dr Veras. # htn - much better controlled on cont norvasc 10mg, cont lisinopril 10mg # depr - wellbutrin was stopped as it can cause hypertension - start paxil # neck pain - suspect muscle spasm; no neuro sx - robaxin prn - overall better # moderate protein calorie malnutrition # hypoK - repleting # dvt ppx - lovenox Subjective: Up in chair. Feeling better. No specific issues. Objective: Vital Signs Temp Pulse Resp BP Pulse Ox 36.8 C 94 20 114/78 96 09/07/18 11:24 09/07/18 11:24 09/07/18 11:24 09/07/18 11:24 09/07/18 11:24 Laboratory Results 09/06/18 05:54 09/07/18 06:05 09/06/18 09/07/18 09/08/18 05:59 05:59 05:59 Intake Total 3437 Output Total 400 1300 375 Balance -400 2137 -375 PT 14.9 SEC (12.0-15.0) 09/06/18 05:54 INR 1.15 (0.83-1.16) 09/06/18 05:54 - Physical Exam Constitutional: not in pain, chronically ill appearing, No obese Eyes: PERRL, anicteric sclera, EOMI Ears, Nose, Mouth, Throat: moist mucous membranes, hearing normal, hard of hearing Cardiovascular: regular rate and rhythym, No JVD, No edema Respiratory: no respiratory distress, no rales or rhonchi, reduced air movement Gastrointestinal: tenderness, distension, No ascites Skin: warm, normal color, No mottled Musculoskeletal: normal joint ROM, no joint effusions, generalized weakness Neurologic: AAOx3 Psychiatric: interacting appropriately, not anxious, not encephalopathic, thought process linear ICD10 Worksheet Patient Problems: Problems Problem Status Onset Small bowel obstruction Acute
[2018-09-07] MEDS: SIMETHICONE 80 MG TAB CHEW PO PRN (13:09)
--- NOTE | 2018-09-07 14:03 | ASMTCMCOM ---
CM Note CM Note Notes: Pts case discussed w/ Renata Hayden NP. Anticipate d/c for tomorrow. CM notified [facility] of this. CM to follow. Plan: [facility]; PT Date Signed: 09/07/2018 02:02 PM Electronically Signed By:HARDIK Tanner
[2018-09-07] MEDS: TPN 1 EA BAG IV SCH (21:00)
[2018-09-08] MEDS: CALCIUM CARBONATE 500 MG CHEWABLE TAB PO PRN ×2 (00:14→21:24)
[2018-09-08] MEDS: ACETAMINOPHEN 500 MG TAB PO SCH ×3 (05:37→21:21)
--- NOTE | 2018-09-08 08:53 | SOAPPROG ---
SOAP Progress Note Assessment/Plan: Assessment: 78yo M s/p ex-lap, NIKOLAY for SBO - no cramps with regular diet, still passing gas and BMs - continue diet - do not renew TPN - needs to eat a little more, home tomorrow. Plan: 08/30/18 08:47 08/31/18 09:48 09/03/18 08:33 09/03/18 08:33 09/07/18 09:39 09/08/18 08:52 Subjective: tolerating diet Objective: Vital Signs Temp Pulse Resp BP Pulse Ox 36.6 C 81 16 121/75 H 95 09/08/18 07:44 09/08/18 07:44 09/08/18 07:44 09/08/18 07:44 09/08/18 07:44 Laboratory Results 09/06/18 05:54 09/07/18 06:05 09/07/18 09/08/18 09/09/18 05:59 05:59 05:59 Intake Total 3437 240 Output Total 1300 1300 Balance 2137 -1060 PT 14.9 SEC (12.0-15.0) 09/06/18 05:54 INR 1.15 (0.83-1.16) 09/06/18 05:54 ICD10 Worksheet Patient Problems: Problems Problem Status Onset Small bowel obstruction Acute
[2018-09-08] MEDS: SENNOSIDES/DOCUSATE SODIUM TAB PO SCH ×2 (09:40→21:21)
[2018-09-08] MEDS: LISINOPRIL 10 MG TAB PO SCH (09:41)
[2018-09-08] MEDS: MAGNESIUM OXIDE 400 MG TAB PO SCH (09:41)
[2018-09-08] MEDS: ATORVASTATIN CALCIUM 20 MG TAB PO SCH (09:41)
[2018-09-08] MEDS: MULTIVITAMINS W-MINERALS 1 EACH TAB PO SCH (09:42)
[2018-09-08] MEDS: PARoxetine HCL 10 MG TAB PO SCH (09:43)
[2018-09-08] MEDS: ENOXAPARIN 40 MG/0.4 ML SYR SC SCH (10:11)
--- NOTE | 2018-09-08 12:58 | HOSPPROG ---
Hospitalist Progress Note Assessment/Plan: 78M with SBO s/p NIKOLAY. Persistent ileus. HM consulted for treatment of hypertension. WBC improving. # htn - much better controlled on cont norvasc 10mg, cont lisinopril 10mg # depr - wellbutrin was stopped as it can cause hypertension - start paxil # neck pain - suspect muscle spasm; no neuro sx - robaxin prn - overall better # moderate protein calorie malnutrition # hypoK - repleting # dvt ppx - lovenox #Dispo -home in am Subjective: Feeling well. No pain. Objective: Vital Signs Temp Pulse Resp BP Pulse Ox 36.6 C 89 16 137/89 H 96 09/08/18 11:43 09/08/18 11:43 09/08/18 11:43 09/08/18 11:43 09/08/18 11:43 Laboratory Results 09/06/18 05:54 09/07/18 06:05 09/07/18 09/08/18 09/09/18 05:59 05:59 05:59 Intake Total 3437 240 Output Total 1300 1300 Balance 2137 -1060 PT 14.9 SEC (12.0-15.0) 09/06/18 05:54 INR 1.15 (0.83-1.16) 09/06/18 05:54 - Physical Exam Constitutional: appears nourished, chronically ill appearing Eyes: PERRL, anicteric sclera Ears, Nose, Mouth, Throat: moist mucous membranes, hearing normal Cardiovascular: No JVD, No edema Respiratory: no respiratory distress, reduced air movement Gastrointestinal: tenderness, distension, No ascites Skin: warm, normal color Musculoskeletal: no joint effusions, generalized weakness Neurologic: AAOx3 Psychiatric: not anxious, not encephalopathic ICD10 Worksheet Patient Problems: Problems Problem Status Onset Small bowel obstruction Acute
[2018-09-08] MEDS: D5W 1/2 NS W/ 20 KCl/L 1,000 ML IV SCH (15:22)
[2018-09-08] MEDS: SIMETHICONE 80 MG TAB CHEW PO PRN (21:24)
[2018-09-08] MEDS: MELATONIN 3 MG TAB PO PRN (22:38)
[2018-09-09] MEDS: METHOCARBAMOL 750 MG TAB PO PRN (02:45)
[2018-09-09] MEDS: ACETAMINOPHEN 500 MG TAB PO SCH (05:49)
[2018-09-09] MEDS: ENOXAPARIN 40 MG/0.4 ML SYR SC SCH (09:20)
[2018-09-09] MEDS: MAGNESIUM OXIDE 400 MG TAB PO SCH (09:20)
[2018-09-09] MEDS: MULTIVITAMINS W-MINERALS 1 EACH TAB PO SCH (09:20)
[2018-09-09] MEDS: LISINOPRIL 10 MG TAB PO SCH (09:20)
[2018-09-09] MEDS: SENNOSIDES/DOCUSATE SODIUM TAB PO SCH (09:20)
[2018-09-09] MEDS: PARoxetine HCL 10 MG TAB PO SCH (09:20)
[2018-09-09] MEDS: ATORVASTATIN CALCIUM 20 MG TAB PO SCH (09:23)
--- NOTE | 2018-09-09 10:00 | HOSPPROG ---
Hospitalist Progress Note Assessment/Plan: 78M with SBO s/p NIKOLAY. Persistent ileus. HM consulted for treatment of hypertension. WBC improving. # htn - much better controlled on cont norvasc 10mg, cont lisinopril 10mg # depr - wellbutrin was stopped as it can cause hypertension - start paxil # neck pain - suspect muscle spasm; no neuro sx - robaxin prn - overall better # moderate protein calorie malnutrition # hypoK - resolved # dvt ppx - lovenox #Dispo -home -DC PICC Subjective: Up in chair. Excited to go home. No specific issues. Objective: Vital Signs Temp Pulse Resp BP Pulse Ox 36.7 C 92 16 133/89 H 94 09/09/18 07:52 09/09/18 07:52 09/09/18 07:52 09/09/18 07:52 09/09/18 07:52 Laboratory Results 09/06/18 05:54 09/07/18 06:05 09/08/18 09/09/18 09/10/18 05:59 05:59 05:59 Intake Total 240 400 Output Total 1300 2100 Balance -1060 -1700 PT 14.9 SEC (12.0-15.0) 09/06/18 05:54 INR 1.15 (0.83-1.16) 09/06/18 05:54 - Physical Exam Constitutional: appears nourished, chronically ill appearing Eyes: PERRL, anicteric sclera Ears, Nose, Mouth, Throat: moist mucous membranes, hearing normal Cardiovascular: No JVD, No edema Respiratory: no respiratory distress, reduced air movement Gastrointestinal: tenderness, distension, No ascites Skin: warm, normal color, No mottled Musculoskeletal: no joint effusions, generalized weakness Neurologic: AAOx3 Psychiatric: interacting appropriately, not anxious ICD10 Worksheet Patient Problems: Problems Problem Status Onset Small bowel obstruction Acute
--- NOTE | 2018-09-09 10:45 | PDDCSUM ---
Discharge Summary Discharge Summary: DISCHARGE SUMMARY Date of Admission August 22, 2018 Date of Discharge September 09, 2018 DISCHARGE DIAGNOSES -small-bowel obstruction status post exploratory laparotomy and adhesiolysis HOSPITAL COURSE The patient was admitted from the ED on August 22. He was initially managed conservatively and failed conservative management was subsequently taken to the operating room on where he underwent exploratory laparotomy and adhesiolysis. Since operation, he had very slow return of bowel function, he was on intravenous nutrition while awaiting bowel function. His bowel function slowly returned, and he was tolerating a regular diet with appropriate return of flatus and having bowel movements. He was subsequently discharged home in stable condition on the . DISCHARGE MEDICATIONS All home medications were restarted, new medications included Robaxin for occasional muscle spasms, and [id number] simethicone for abdominal cramping. DISPOSITION Home FOLLOW UP Follow up with me in the office in 10-14 days for a general post-operative visit
[2018-09-09 12:07] VITALS: BP 138/92
--- NOTE | 2018-09-09 12:19 | PDIAF ---
- Diagnosis Diagnosis: SBO Code Status: Full Code - Medication Management Discharge Medications: electronically signed and located in the Home Medication List. PICC Care - Routine: N/A - Orders Services needed: Home Care, Physical Therapy Home Care Face to Face: I certify that this patient was under my care and that I had the required [id number] encounter meeting the encounter requirements on the discharge day. My findings support the fact that the patient is homebound as defined in Home Care Face to Face Continued: CMS Chapter 7 Medicare Benefits Manual 30.1.1 , The condition of the patient is such that there exists a normal inability to leave home and consequently, leaving home would require a considerable and taxing effort. Isolation Type: None Diet Recommendation: no restrictions on diet Diet Texture: Regular Texture Diet Additional Instructions: Eat a bland diet for the next 2 weeks. Foods that are hard on your stomach and difficult to digest please stay away from No heavy lifting or strenuous activity until seen and cleared by surgeon [place] daily is ok and recommended, no gym shower, tub bathing is ok. No need for a dressing over your incisions IF you havent had a bowel movement for 2 days, take Miralax as directed to help have bowel function Ibuprofen and Tylenol as needed for pain, in addition to the prescription muscle relaxer. - Follow Up Care Current Providers and Referrals: Cuate Pickett DO [Primary Care Provider] - follow up as scheduled (Appointment set for 09/03/18 at 2:30pm. Please check in at 2:15pm. ) Live Veras MD [Medical Doctor] - follow up in 2 weeks (call the office for a routine office follow up)
--- NOTE | 2018-09-09 16:49 | ASDISCHSUM ---
Discharge Information Plan Status:Home with Home Health Medically Cleared to Leave: Discharge Date:09/09/2018 02:42 PM CM D/C Disposition:Home Health Service ADT D/C Disposition:Home, Routine, Self-Care Projected Discharge Date:09/06/2018 11:00 AM Transportation at D/C:Family Discharge Delay Reason: Follow-Up Date:09/06/2018 11:00 AM Discharge Slot: Final Diagnosis: Placement Information Referral Type:*Home Health Care Services Referral ID:[id number] Provider Name:[facility] Address 1:[address] [place] [address] Address 2: City:[place] Selection Factors: State:[place] Patient Contact Information Contact Name:CODIE Relationship: Address:[address] Work Phone: City:[place] Alternate Phone: State/Zip Code:[place] [address] Email: Financial Information Financial Class:Medicare Advantage Plans Primary Plan Desc:[facility] [employer] Primary Plan Number:[id number] Secondary Plan Desc: Secondary Plan Number: Assessment Information [facility] CM Progress Note CM Note CM Note Notes: Spoke w/RN, pt admitted with sbo. He has an NG tube, uncertain if he will need surgery, CM w/f. He is otherwise independent at baseline and lives at home with his . DC Plan: Independent Date Signed: 08/23/2018 11:57 AM Electronically Signed By:Ibeth Fernandez RN [facility] CM Progress Note CM Note CM Note Notes: Case Management Chart Review for Discharge Support: Patient underwent exploratory laparotomy with lysis of adhesions, findings moderate grade partial small bowl obstruction due to adhesive band. CM talked with JHOANA Dale, patient will likely discharge in a few days independent. CM to follow. D/C Plan: Independent Date Signed: 08/26/2018 05:29 PM Electronically Signed By:Shanita Urena [facility] CM Progress Note CM Note CM Note Notes: Pt admitted for small bowel obstruction, no therapies ordered. Anticipate he will dc home w/support of when medically stable. CM available for any changes. DC Plan: Independent Date Signed: 08/29/2018 04:54 PM Electronically Signed By:Ibeth Fernandez RN [facility] CM Progress Note CM Note CM Note Notes: Spoke w/RN, pt vomited this am, still has ileus. Otherwise independent, will dc home w/support of when medically stable. CM available for any changes. DC Plan: Independent Date Signed: 08/31/2018 10:05 AM Electronically Signed By:Ibeth Fernandez RN [facility] CM Progress Note CM Note CM Note Notes: Pts case discussed w/ Lilo Correa NP and JHOANA Rojo. Pt is not medically stable to d/c at this time. Pt will have a picc line placed and start TPN. It is uncertain if pt will require TPN at time of d/c. CM to follow. Plan: TBD Date Signed: 09/03/2018 09:37 AM Electronically Signed By:HARDIK Tanner [facility] CM Progress Note CM Note CM Note Notes: CM met w/ pt and family for dispo planning. PT is recommending HC. Pt and family are agreeable to HC services. Pt is currently on TPN. The hope is for pt to transition to food prior to being d/c'd. Pt and family agreeable to a referral made to [facility]. [facility] is able to accept. CM to follow. Plan: [facility], PT Date Signed: 09/05/2018 02:30 PM Electronically Signed By:HARDIK Tanner [facility] CM Progress Note CM Note CM Note Notes: Pts case discussed w/ Renata Hayden NP. Anticipate d/c for tomorrow. CM notified [facility] of this. CM to follow. Plan: [facility]; PT Date Signed: 09/07/2018 02:02 PM Electronically Signed By:HARDIK Tanner Intervention Information
--- NOTE | 2018-09-12 16:30 | PQFORM ---
PHYSICIAN QUERY FORM Needs Your Response This query form is being sent to you to assure this patient record is coded properly. Please respond to the question below: [employer] QUESTION: Dear Dr. Veras, in reviewing this patients medical record, it is noted that the patient held the diagnosis of 'Moderate Protein Calorie Malnutrition.' Noted in the Hospitalist Progress Notes dated 09/05-09/09 patient was diagnosed with "Moderate Protein Calorie Malnutrition, with 7% weight loss associated muscle wasting and fat loss." After study, should the diagnosis of "Moderate Protein Calorie Malnutrition, not present on admission" be included in the Discharge Summary? Yes No Unable to determine Other (please specify) Thank you EPIFANIO Yan HIM/Coding Dept. [phone] INSTRUCTIONS FOR RESPONSE: Answer question by clicking on the "Edit Document" button. Move cursor to area below the stars. When complete, hit "Save." Click on the "Sign" button, then click "Sign" again. Type in your PIN and hit "Enter." Yes, add Moderate Protein Calorie Malnutrition, not present on admission to the DC summary MTDD
== END 2018-09-09 14:42 | disposition home health service (06) | DRG 336 ==
LOC: F3E 18:16
PROVIDERS: ADMIT Surgery; ATTEND Surgery
PROC: 0DN80ZZ Release Small Intestine, Open Approach (ICD-10-PCS; principal; 2018-08-26 13:15)
PROC: 02HV33Z Insertion of Infusion Device into Superior Vena Cava, Percutaneous Approach (ICD-10-PCS; 2018-09-03)
DX: K56.51 Intestinal adhesions [bands], with partial obstruction (principal); E44.0 Moderate protein-calorie malnutrition; E86.9 Volume depletion, unspecified; I10 Essential (primary) hypertension; E87.6 Hypokalemia; K56.7 Ileus, unspecified; Q45.8 Other specified congenital malformations of digestive system
CPT/HCPCS: 82435-PO; 82565-PO; 82947-PO; 84132-PO; 84295-PO; 84520-PO; 85014-ER; 96374; 97116-GP; 97162-GP; 97166-GO; 97530-GP; C1751; J0330; J0744; J1100; J1170; J1650; J1885; J2060; J2370; J2405; J2704; J2795; J3010; J3480; Q9967

== ENCOUNTER → 2018-10-08 | Outpatient (CLI) | payer OTHER | LOC: FIMAGING 09:47 | PROVIDERS: ATTEND Family Medicine | DX: M17.11 Unilateral primary osteoarthritis, right knee (principal) ==